=== PATIENT | female | born 1945 | race Caucasian/White ===

== ENCOUNTER 2017-12-06 06:12 | Emergency (ER) | payer OTHER ==
[2017-12-06] MEDS ORDERED: DIAZEPAM 10 MG/2 ML INJ SYRINGE ONE (07:03)
[2017-12-06] MEDS ORDERED: MECLIZINE HCL 12.5 MG TAB ONE (07:05)
[2017-12-06 07:42] LABS: Protime INR 1.09
[2017-12-06 07:43] LABS: Absolute Lymphocytes (CBC) 0.9 K/uL (0.7-4.9); Absolute Monocytes 0.4 K/uL (0.1-1.3); Absolute Neutrophil 5.8 K/uL (1.8-8.0); Basophils % 0.6 % (0-1.3); Eosinophils % 0.7 % (0-4.4); Lymphocytes % 12.5 % (15.3-44.8); MCH 28.3 pg (27.0-35.0); MCV 84.5 fL (80-100); MPV 8.3 fL (7.6-11.3); Monocytes % 5.1 % (3.3-12.3); RBC Red Blood Cell Count 5.56 M/uL (3.86-4.86)
[2017-12-06 08:00] LABS: Magnesium 2.4 mg/dL (1.8-2.4); Potassium 3.1 mmol/L (3.5-5.1)
--- NOTE | 2017-12-06 08:10 | RAD REPORT ---
EXAM DESCRIPTION: CT - Head Brain Wo Cont - 12/06/2017 6:58 am CLINICAL HISTORY: DIZZINESS Drowsiness, hypertension. COMPARISON: Head Brain Wo Cont dated 01/02/2017; HEAD BRAIN W O CONTRAST dated 03/17/2014 TECHNIQUE: All CT scans are performed using dose optimization technique as appropriate and may inclu de automated exposure control or mA/KV adjustment according to patient size. FINDINGS: No intracranial hemorrhage, hydrocephalus or extra-axial fluid collection.No areas of brai n edema or evidence of midline shift. Vertebral arteries are calcified. The paranasal sinuses and mastoids are clear. The calvarium is intact. IMPRESSION: No acute intracranial abnormality.
--- NOTE | 2017-12-06 08:11 | RAD REPORT ---
EXAM DESCRIPTION: RAD - Chest Single View - 12/06/2017 7:04 am CLINICAL HISTORY: DYSPNEA Chest pain. COMPARISON: Chest Single View dated 01/02/2017; CHEST PA AND LAT 2 VIEW dated 07/08/2014; CHEST SINGLE VIEW dated 03/17/2014; CHEST SINGLE VIEW dated 08/10/2013 FINDINGS: Portable technique limits examination quality. The lungs are grossly clear. The heart is normal in size. No displaced fractures. IMPRESSION: No acute intrathoracic process suspected.
[2017-12-06] MEDS ORDERED: POTASSIUM CL SA 10 MEQ TAB PO ONE (08:12)
--- NOTE | 2017-12-06 08:22 | ER ---
Nurse's Notes [facility] Name: Ilda Loaiza Age: 72 yrs Sex: Female : 1945 Arrival Date: 12/06/2017 Time: 06:13 Bed 18 Private MD: Diagnosis: Vertigo Presentation: 12/06 06:25 Presenting complaint: Patient states: "I am getting dizzy and having some general jd3 weakness today since about 0400. I am not sure if it is just a blood pressure issue or what.". Transition of care: patient was not received from another setting of care. 06:25 Method Of Arrival: Ambulatory jd3 06:26 Onset of symptoms was December 06, 2017. Risk Assessment: Do you want to hurt yourself or jd3 someone else? Patient reports no desire to harm self or others. Initial Sepsis Screen: Does the patient meet any 2 criteria? No. Patient's initial sepsis screen is negative. Does the patient have a suspected source of infection? No. Patient's initial sepsis screen is negative. Care prior to arrival: None. 06:26 Acuity: KILO 3 jd3 Historical: - Allergies: 06:29 No Known Allergies; jd3 - Home Meds: 06:29 amlodipine 10 mg tab 1 tab once daily [Active]; omeprazole 40 mg Oral cpDR 1 cap once jd3 daily [Active]; - PMHx: 06:29 Hypertension; High Cholesterol; lin's esophagus; jd3 - PSHx: 06:29 Hysterectomy; Cholecystectomy; jd3 - Immunization history:: Adult Immunizations up to date. - Social history:: Smoking status: Patient/guardian denies using tobacco. - Ebola Screening: : Patient negative for fever greater than or equal to 101.5 degrees Fahrenheit, and additional compatible Ebola Virus Disease symptoms. Screenin:32 Abuse screen: Denies threats or abuse. Nutritional screening: No deficits noted. jd3 Tuberculosis screening: No symptoms or risk factors identified. Fall Risk Ambulatory Aid- None/Bed Rest/Nurse Assist (0 pts). Gait- Normal/Bed Rest/Wheelchair (0 pts) Mental Status- Oriented to own ability (0 pts). Total Christina Fall Scale indicates No Risk (0-24 pts). Assessment: 06:30 General: Appears in no apparent distress. Behavior is calm, cooperative, appropriate jd3 for age. Pain: Denies pain. Neuro: Level of Consciousness is awake, alert, obeys commands, Oriented to person, place, time, situation, Appropriate for age Moves all extremities. Full function Gait is steady, Speech is normal, Facial symmetry appears normal, Pupils are PERRLA, Reports dizziness, weakness general. Cardiovascular: Heart tones S1 S2 present Capillary refill < 3 seconds Patient's skin is warm and dry. Respiratory: Airway is patent Respiratory effort is even, unlabored, Respiratory pattern is regular, symmetrical, Breath sounds are clear bilaterally. GI: Abdomen is round Bowel sounds present X 4 quads. Abd is soft and non tender X 4 quads. Reports nausea. : No signs and/or symptoms were reported regarding the genitourinary system. EENT: No signs and/or symptoms were reported regarding the EENT system. Derm: Skin is intact, Skin is dry, Skin is normal, Skin temperature is warm. Musculoskeletal: Circulation, motion, and sensation intact. Range of motion: intact in all extremities. 07:02 Reassessment: at CT;. hj 07:10 General: Appears in no apparent distress. uncomfortable, Behavior is calm, cooperative, hj appropriate for age. Pain: Denies pain. Neuro: Level of Consciousness is awake, alert, obeys commands, Oriented to person, place, time, situation, Appropriate for age Moves all extremities. Full function Gait is steady, Speech is normal, Facial symmetry appears normal, Pupils are PERRLA. Cardiovascular: Heart tones S1 S2 present Capillary refill < 3 seconds Patient's skin is warm and dry. Respiratory: Airway is patent Respiratory effort is even, unlabored, Respiratory pattern is regular, symmetrical, Breath sounds are clear. GI: No signs and/or symptoms were reported involving the gastrointestinal system. : No signs and/or symptoms were reported regarding the genitourinary system. EENT: No signs and/or symptoms were reported regarding the EENT system. Derm: Skin is intact, Skin is dry, Skin is pink, warm \\T\\ dry. normal, Skin temperature is warm. Musculoskeletal: Circulation, motion, and sensation intact. Capillary refill < 3 seconds, Range of motion: intact in all extremities. 08:04 Reassessment: Patient and/or family updated on plan of care and expected duration. Pain hj level reassessed. Patient is alert, oriented x 3, equal unlabored respirations, skin warm/dry/pink. Patient states feeling better. Patient states symptoms have improved. Vital Signs: 06:29 BP 167 / 67; Pulse 77; Resp 16 S; Temp 97.3(O); Pulse Ox 96% on R/A; Weight 70.31 kg jd3 (R); Height 5 ft. 3 in. (160.02 cm) (R); Pain 0/10; 07:00 BP 160 / 68; Pulse 75; Resp 18; Pulse Ox 100% on R/A; hj 08:04 BP 119 / 81; Pulse 75; Resp 18; Pulse Ox 100% on R/A; hj 08:07 BP 119 / 81; Pulse 76; Resp 18; Pulse Ox 100% on R/A; hj 06:29 Body Mass Index 27.46 (70.31 kg, 160.02 cm) j ED Course: 06:13 Patient arrived in ED. ds1 06:23 Thom Regan PA is PHCP. jr8 06:23 Julius Merino MD is Attending Physician. jr8 06:25 Cristobal Black, RN is Primary Nurse. jd3 06:27 Triage completed. jd3 06:30 Arm band placed on. jd3 06:32 Patient has correct armband on for positive identification. Bed in low position. Call j light in reach. Side rails up X 1. Adult w/ patient. 06:58 CT Head Brain wo Cont In Process Unspecified. EDMS 06:59 CT completed. Patient tolerated procedure well. Patient moved to CT via wheelchair. Patient moved back from CT. 06:59 Patient moved to radiology via wheelchair. 07:03 X-ray completed. Patient tolerated procedure well. Patient moved to radiology via jb2 wheelchair. Patient moved back from radiology. 07:03 Report received from LAWRENCE Jain. 07:04 XRAY Chest (1 view) In Process Unspecified. EDMS 07:10 Initial lab(s) drawn, by me, sent to lab. Inserted saline lock: 22 gauge in right hj antecubital area, using aseptic technique. Blood collected. 08:29 No provider procedures requiring assistance completed. IV discontinued, intact, hj bleeding controlled, No redness/swelling at site. Pressure dressing applied. Administered Medications: 06:51 Drug: Meclizine 25 mg Route: PO; hj 08:07 Follow up: Response: No adverse reaction hj 06:51 Drug: Valium 2 mg Route: IVP; Site: right antecubital; hj 08:07 Follow up: Response: No adverse reaction hj 08:07 Drug: Potassium Chloride 40 mEq Route: PO; hj 08:11 Follow up: Response: No adverse reaction hj Outcome: 08:21 Discharge ordered by . isma 08:29 Discharged to home ambulatory. hj 08:29 Condition: stable 08:29 Discharge instructions given to patient, Instructed on discharge instructions, follow up and referral plans. medication usage, Demonstrated understanding of instructions, follow-up care, medications, Prescriptions given X 2. 08:29 Patient left the ED. Signatures: Dispatcher [employer] EDMS Dmitry Grace Ervin eh Sanford, Demi ds1 Thom Regan PA PA jr8 Juan Antonio Palafox RN RN Cristobal Cason RN RN jd3 Corrections: (The following items were deleted from the chart) 06:27 06:25 Presenting complaint: Patient states: "I am getting dizzy and having some general jd3 weakness today since about 0400." jd3
--- NOTE | 2017-12-06 08:22 | EDPHYS ---
Physician Documentation [facility] Name: Ilda Loaiza Age: 72 yrs Sex: Female : 1945 Arrival Date: 12/06/2017 Time: 06:13 Bed 18 Private MD: ED Physician Julius Merino HPI: 12/06 07:19 This 72 yrs old Female presents to ER via Ambulatory with complaints of jr8 Dizziness, Weakness. 07:19 The patient presents with sense of spinning, vertigo. Onset: The symptoms/episode jr8 began/occurred acutely, this morning, today. Context: occurred at home, occurred while the patient was at rest, just prior to the episode the patient experienced no apparent symptoms. Modifying factors: The symptoms are alleviated by holding head still, the symptoms are aggravated by movement of head, standing up, changing position. Associated signs and symptoms: Pertinent positives: nausea. Severity of symptoms: At their worst the symptoms were moderate in the emergency department the symptoms have resolved. Patient's baseline: Neuro: alert and fully oriented, Motor: no deficits, Ambulation: walks without assistance, Speech: normal. The patient has experienced similar episodes in the past, a few times. The patient has not recently seen a physician. Historical: - Allergies: 06:29 No Known Allergies; jd3 - Home Meds: 06:29 amlodipine 10 mg tab 1 tab once daily [Active]; omeprazole 40 mg Oral cpDR 1 cap once jd3 daily [Active]; - PMHx: 06:29 Hypertension; High Cholesterol; lin's esophagus; jd3 - PSHx: 06:29 Hysterectomy; Cholecystectomy; jd3 - Immunization history:: Adult Immunizations up to date. - Social history:: Smoking status: Patient/guardian denies using tobacco. - Ebola Screening: : Patient negative for fever greater than or equal to 101.5 degrees Fahrenheit, and additional compatible Ebola Virus Disease symptoms. ROS: 07:19 Eyes: Negative for injury, pain, redness, and discharge, ENT: Negative for injury, jr8 pain, and discharge, Neck: Negative for injury, pain, and swelling, Cardiovascular: Negative for chest pain, palpitations, and edema, Respiratory: Negative for shortness of breath, cough, wheezing, and pleuritic chest pain, Back: Negative for injury and pain, MS/Extremity: Negative for injury and deformity, Skin: Negative for injury, rash, and discoloration. 07:19 Abdomen/GI: Positive for nausea, Negative for abdominal pain, vomiting, diarrhea, abdominal cramps, abdominal distension, anorexia, dysphagia, hematemesis, black/tarry stool, rectal pain, rectal bleeding, bowel incontinence, flatulence. 07:19 Neuro: Positive for dizziness, Negative for altered mental status, gait disturbance, headache, hearing loss, loss of consciousness, numbness, seizure activity, speech changes, syncope, near syncope, tingling, tinnitus, tremor, visual changes, weakness. Exam: 07:19 Eyes: Pupils equal round and reactive to light, extra-ocular motions intact. Lids and jr8 lashes normal. Conjunctiva and sclera are non-icteric and not injected. Cornea within normal limits. Periorbital areas with no swelling, redness, or edema. ENT: Nares patent. No nasal discharge, no septal abnormalities noted. Tympanic membranes are normal and external auditory canals are clear. Oropharynx with no redness, swelling, or masses, exudates, or evidence of obstruction, uvula midline. Mucous membranes moist. Neck: Trachea midline, no thyromegaly or masses palpated, and no cervical lymphadenopathy. Supple, full range of motion without nuchal rigidity, or vertebral point tenderness. No Meningismus. Cardiovascular: Regular rate and rhythm with a normal S1 and S2. No gallops, murmurs, or rubs. Normal PMI, no JVD. No pulse deficits. Respiratory: Lungs have equal breath sounds bilaterally, clear to auscultation and percussion. No rales, rhonchi or wheezes noted. No increased work of breathing, no retractions or nasal flaring. Abdomen/GI: Soft, non-tender, with normal bowel sounds. No distension or tympany. No guarding or rebound. No evidence of tenderness throughout. Back: No spinal tenderness. No costovertebral tenderness. Full range of motion. Skin: Warm, dry with normal turgor. Normal color with no rashes, no lesions, and no evidence of cellulitis. MS/ Extremity: Pulses equal, no cyanosis. Neurovascular intact. Full, normal range of motion. Neuro: Awake and alert, GCS 15, oriented to person, place, time, and situation. Cranial nerves II-XII grossly intact. Motor strength 5/5 in all extremities. Sensory grossly intact. Cerebellar exam normal. Normal gait. Vital Signs: 06:29 BP 167 / 67; Pulse 77; Resp 16 S; Temp 97.3(O); Pulse Ox 96% on R/A; Weight 70.31 kg jd3 (R); Height 5 ft. 3 in. (160.02 cm) (R); Pain 0/10; 07:00 BP 160 / 68; Pulse 75; Resp 18; Pulse Ox 100% on R/A; hj 08:04 BP 119 / 81; Pulse 75; Resp 18; Pulse Ox 100% on R/A; hj 08:07 BP 119 / 81; Pulse 76; Resp 18; Pulse Ox 100% on R/A; hj 06:29 Body Mass Index 27.46 (70.31 kg, 160.02 cm) jd3 MDM: 06:23 Patient medically screened. [facility] 08:20 Differential diagnosis: cardiac arrhythmia, CVA, generalized weakness, hypovolemia, jr8 idiopathic dizziness, near-syncope, sepsis, syncope, TIA, vertigo. Data reviewed: vital signs, nurses notes, lab test result(s), EKG, radiologic studies, CT scan, and as a result, I will discharge patient. Data interpreted: Pulse oximetry: on room air is 100 %. Interpretation: normal. Counseling: I had a detailed discussion with the patient and/or guardian regarding: the historical points, exam findings, and any diagnostic results supporting the discharge/admit diagnosis, lab results, radiology results, the need for outpatient follow up, a family practitioner, a neurologist, to return to the emergency department if symptoms worsen or persist or if there are any questions or concerns that arise at home. 12/06 06:42 Order name: Basic Metabolic Panel 12/06 06:42 Order name: CBC with Diff; Complete Time: 07:52 12/06 06:42 Order name: Magnesium; Complete Time: 08:06 12/06 06:42 Order name: NT PRO-BNP; Complete Time: 08:06 12/06 06:42 Order name: PT-INR; Complete Time: 07:52 12/06 06:43 Order name: Basic Metabolic Panel; Complete Time: 08:06 EDMS 12/06 06:42 Order name: XRAY Chest (1 view); Complete Time: 08:12 12/06 06:42 Order name: EKG; Complete Time: 06:43 12/06 06:42 Order name: Cardiac monitoring; Complete Time: 06:51 12/06 06:42 Order name: EKG - Nurse/Tech; Complete Time: 06:51 12/06 06:42 Order name: CT Head Brain wo Cont; Complete Time: 08:12 12/06 06:42 Order name: IV Saline Lock; Complete Time: 07:18 12/06 06:42 Order name: Labs collected and sent; Complete Time: :18 12/06 06:42 Order name: O2 Per Protocol; Complete Time: 06:51 12/06 06:42 Order name: O2 Sat Monitoring; Complete Time: : Administered Medications: 06:51 Drug: Meclizine 25 mg Route: PO; hj 08:07 Follow up: Response: No adverse reaction hj 06:51 Drug: Valium 2 mg Route: IVP; Site: right antecubital; hj 08:07 Follow up: Response: No adverse reaction hj 08:07 Drug: Potassium Chloride 40 mEq Route: PO; hj 08:11 Follow up: Response: No adverse reaction Disposition: 12/07 07:01 Co-signature as Attending Physician, Julius Merino MD I agree with the assessment and orwan plan of care. Disposition: 12/06/17 08:21 Discharged to Home. Impression: Vertigo. - Condition is Stable. - Discharge Instructions: Benign Positional Vertigo, Vertigo. - Prescriptions for Meclizine 25 mg Oral Tablet - take 1 tablet by ORAL route every 8 hours As needed; 30 tablet. Zofran 4 mg Oral Tablet - take 1 tablet by ORAL route every 12 hours As needed; 20 tablet. - Medication Reconciliation Form, Thank You Letter, Antibiotic Education, Prescription Opioid Use form. - Follow up: Private Physician; When: 2 - 3 days; Reason: Recheck today's complaints, Continuance of care, Re-evaluation by your physician. - Problem is new. - Symptoms have improved. Signatures: Dispatcher [employer] Julius Puckett MD MD cha Roszak, Josh, PA PA jr8 Juan Antonio Palafox RN RN hj Davies, Jonathon, RN RN jd3 Corrections: (The following items were deleted from the chart) 07/26 08:29 08:21 12/06/2017 08:21 Discharged to Home. Impression: Vertigo. Condition is Stable. hj Forms are Medication Reconciliation Form, Thank You Letter, Antibiotic Education, Prescription Opioid Use. Follow up: Private Physician; When: 2 - 3 days; Reason: Recheck today's complaints, Continuance of care, Re-evaluation by your physician. Problem is new. Symptoms have improved. jr8
[2017-12-06 08:35] VITALS: TEMP 97.3
[2017-12-06 08:36] VITALS: O2SAT 100
[2017-12-06 08:37] VITALS: BP 119/81
--- NOTE | 2017-12-06 12:11 | EKG ---
Test Date: 2017-12-06 Test Time: 06:47:10 Animal Assistant: ALISSON MEASUREMENT RESULTS: Intervals: Rate: 69 [place]: 186 QRSD: 150 QT: 446 QTc: 477 [place]: P: 61 [place]: 186 QRS: -48 T: -12 INTERPRETIVE STATEMENTS: Normal sinus rhythm Right bundle branch block Left anterior fascicular block Bifascicular block Abnormal ECG Compared to ECG 01/02/2017 22:32:56 No significant changes Electronically Signed On 12-06-17 12:10:09 CDT by Quan Medley
== END 2017-12-06 08:29 | disposition home or self-care (01) ==
LOC: ER 06:12
DX: R42 Dizziness and giddiness (principal); R53.1 Weakness
CPT/HCPCS: 36415; 70450; 71045; 80048; 83735; 83880; 85025; 85610; 93005; 96374; 99284; J3360

== ENCOUNTER 2018-05-29 19:05 | Emergency (ER) | payer OTHER ==
--- NOTE | 2018-05-29 19:52 | RAD REPORT ---
EXAM DESCRIPTION: CT - Head Brain Wo Cont - 05/29/2018 7:46 pm CLINICAL HISTORY: DIZZINESS Headache, drowsiness COMPARISON: Head Brain Wo Cont dated 12/06/2017; Head Brain Wo Cont dated 01/02/2017 TECHNIQUE: All CT scans are performed using dose optimization technique as appropriate and may inclu de automated exposure control or mA/KV adjustment according to patient size. FINDINGS: No intracranial hemorrhage, hydrocephalus or extra-axial fluid collection.No areas of brai n edema or evidence of midline shift. The paranasal sinuses and mastoids are clear. The calvarium is intact. Vertebral arteries are atheros clerotic IMPRESSION: No acute intracranial abnormality.
[2018-05-29] MEDS ORDERED: NA CHLORIDE 0.9% 1,000 ML ONE (20:03)
[2018-05-29 20:07] LABS: Absolute Lymphocytes (CBC) 1.3 K/uL (0.7-4.9); Absolute Monocytes 0.7 K/uL (0.1-1.3); Absolute Neutrophil 7.8 K/uL (1.8-8.0); Basophils % 0.6 % (0-1.3); Eosinophils % 1.6 % (0-4.4); Hematocrit 41.5 % (36.0-45.0); Lymphocytes % 13.1 % (15.3-44.8); MPV 7.7 fL (7.6-11.3); Monocytes % 7.2 % (3.3-12.3); RBC Red Blood Cell Count 4.94 M/uL (3.86-4.86)
[2018-05-29 20:11] LABS: Protime INR 1.12
--- NOTE | 2018-05-29 20:13 | RAD REPORT ---
EXAM DESCRIPTION: RAD - Chest Single View - 05/29/2018 7:56 pm CLINICAL HISTORY: COUGH Chest pain. COMPARISON: Chest Single View dated 12/06/2017; Chest Single View dated 01/02/2017; CHEST PA AND LAT 2 VIEW dated 07/08/2014; CHEST SINGLE VIEW dated 03/17/2014 FINDINGS: Portable technique limits examination quality. The lungs are grossly clear. The heart is normal in size. No displaced fractures. IMPRESSION: No acute intrathoracic process suspected.
[2018-05-29 20:33] LABS: ALT/SGPT 23 U/L (12-78); AST/SGOT 18 U/L (15-37); Albumin 3.3 g/dL (3.4-5.0); Alkaline Phosphatase 102 U/L (45-117); BUN Blood Urea Nitrogen 16 mg/dL (7-18); Bicarbonate 26 mmol/L (21-32); Bilirubin Direct < 0.1 mg/dL (0-0.2); Bilirubin Total 0.3 mg/dL (0.2-1.0); Glucose Level 111 mg/dL (74-106); Lipase 262 U/L (73-393); Magnesium 2.4 mg/dL (1.8-2.4); NT PRO-BNP 118 pg/mL (<125); Potassium 3.8 mmol/L (3.5-5.1); Sodium Level 144 mmol/L (136-145); Troponin (Emerg Dept Use Only) < 0.02 ng/mL (0.0-0.045)
--- NOTE | 2018-05-29 21:17 | RAD REPORT ---
EXAM DESCRIPTION: US - CP - 05/29/2018 9:06 pm CLINICAL HISTORY: DIZZINESS TIA, syncope COMPARISON: Carotid Artery Bilateral dated 01/03/2017 TECHNIQUE: Real-time sonographic evaluation of both carotid systems was performed. Doppler interroga tion was performed with waveform tracing bilaterally. FINDINGS: Normal high resistance waveforms are noted in both external carotid arteries. The common c arotid arteries and internal carotid arteries show normal low resistance waveforms. No significant plaque formation is seen. Peak systolic and end diastolic velocity values and the ICA/ CCA ratios are in the non-hemodynamically significant range. Antegrade flow seen in both vertebral arteries. IMPRESSION: No significant atherosclerotic changes noted. No evidence of a hemodynamically significant stenosis.
--- NOTE | 2018-05-29 21:40 | EDPHYS ---
Physician Documentation [facility] Name: Ilda Loaiza Age: 73 yrs Sex: Female : 1945 Arrival Date: 05/29/2018 Time: 19:10 Bed 8 Private MD: Basil Dunn ED Physician Julius Merino HPI: 05/29 21:34 This 73 yrs old Female presents to ER via Ambulatory with complaints of rowan Dizziness. 21:34 The patient presents with dizziness. Onset: The symptoms/episode began/occurred 2 rowan day(s) ago. Context: occurred at an unknown location. Modifying factors: The symptoms are alleviated by closing eyes, holding head still, the symptoms are aggravated by movement of head. Associated signs and symptoms: The patient has no apparent associated signs or symptoms. Severity of symptoms: At their worst the symptoms were moderate in the emergency department the symptoms are unchanged. Patient's baseline: Neuro:. The patient has not experienced similar symptoms in the past. Historical: - Allergies: 19:22 unknown pain med; aa1 - Home Meds: 19:22 amlodipine 10 mg tab 1 tab once daily [Active]; omeprazole 40 mg Oral cpDR 1 cap once aa1 daily [Active]; - PMHx: 19:22 Gallardo's Esophagus; High Cholesterol; Hypertension; aa1 - PSHx: 19:22 Hysterectomy; Cholecystectomy; aa1 - Immunization history:: Flu vaccine is not up to date. - Social history:: Smoking status: Patient/guardian denies using tobacco. - Ebola Screening: : No symptoms or risks identified at this time. - Family history:: not pertinent. ROS: 21:34 Constitutional: Negative for fever, chills, and weight loss, Eyes: Negative for injury, rowan pain, redness, and discharge, ENT: Negative for injury, pain, and discharge, Neck: Negative for injury, pain, and swelling, Cardiovascular: Negative for chest pain, palpitations, and edema, Respiratory: Negative for shortness of breath, cough, wheezing, and pleuritic chest pain, Abdomen/GI: Negative for abdominal pain, nausea, vomiting, diarrhea, and constipation, Back: Negative for injury and pain, : Negative for injury, bleeding, discharge, and swelling, MS/Extremity: Negative for injury and deformity, Skin: Negative for injury, rash, and discoloration, Psych: Negative for depression, anxiety, suicide ideation, homicidal ideation, and hallucinations, Allergy/Immunology: Negative for hives, rash, and allergies, Endocrine: Negative for neck swelling, polydipsia, polyuria, polyphagia, and marked weight changes, Hematologic/Lymphatic: Negative for swollen nodes, abnormal bleeding, and unusual bruising. 21:34 Neuro: Positive for dizziness. Exam: 21:34 Constitutional: This is a well developed, well nourished patient who is awake, alert, rowan and in no acute distress. Head/Face: Normocephalic, atraumatic. Eyes: Pupils equal round and reactive to light, extra-ocular motions intact. Lids and lashes normal. Conjunctiva and sclera are non-icteric and not injected. Cornea within normal limits. Periorbital areas with no swelling, redness, or edema. ENT: Nares patent. No nasal discharge, no septal abnormalities noted. Tympanic membranes are normal and external auditory canals are clear. Oropharynx with no redness, swelling, or masses, exudates, or evidence of obstruction, uvula midline. Mucous membranes moist. Neck: Trachea midline, no thyromegaly or masses palpated, and no cervical lymphadenopathy. Supple, full range of motion without nuchal rigidity, or vertebral point tenderness. No Meningismus. Chest/axilla: Normal chest wall appearance and motion. Nontender with no deformity. No lesions are appreciated. Cardiovascular: Regular rate and rhythm with a normal S1 and S2. No gallops, murmurs, or rubs. Normal PMI, no JVD. No pulse deficits. Respiratory: Lungs have equal breath sounds bilaterally, clear to auscultation and percussion. No rales, rhonchi or wheezes noted. No increased work of breathing, no retractions or nasal flaring. Abdomen/GI: Soft, non-tender, with normal bowel sounds. No distension or tympany. No guarding or rebound. No evidence of tenderness throughout. Back: No spinal tenderness. No costovertebral tenderness. Full range of motion. Skin: Warm, dry with normal turgor. Normal color with no rashes, no lesions, and no evidence of cellulitis. MS/ Extremity: Pulses equal, no cyanosis. Neurovascular intact. Full, normal range of motion. Neuro: Awake and alert, GCS 15, oriented to person, place, time, and situation. Cranial nerves II-XII grossly intact. Motor strength 5/5 in all extremities. Sensory grossly intact. Cerebellar exam normal. Normal gait. Psych: Awake, alert, with orientation to person, place and time. Behavior, mood, and affect are within normal limits. 21:34 Neck: External neck: is normal, no acute changes, C-spine: appears grossly normal, no acute changes, Thyroid: appears normal, no acute changes, Trachea: no acute changes, ROM/movement: is normal, no acute changes, Meningeal signs: are not present, Kernig's sign is negative, Brudzinski's sign is negative. Vital Signs: 19:22 BP 191 / 89; Pulse 92; Resp 18; Temp 98.2; Pulse Ox 96% on R/A; Weight 70.76 kg; Height aa1 5 ft. 3 in. (160.02 cm); Pain 0/10; 21:57 BP 183 / 75; Pulse 98; Resp 18; Pulse Ox 97% on R/A; ea 22:31 BP 150 / 73; Pulse 80; Resp 20; Pulse Ox 94% on R/A; ea 22:37 BP 138 / 69; Pulse 82; Resp 19; Pulse Ox 99% ; ea 19:22 Body Mass Index 27.63 (70.76 kg, 160.02 cm) aa1 MDM: 19:35 Patient medically screened. [facility] 21:36 Data reviewed: vital signs, nurses notes, lab test result(s), EKG, radiologic studies, [facility] CT scan, plain films. 05/29 19:37 Order name: Basic Metabolic Panel [facility] 05/29 19:37 Order name: CBC with Diff; Complete Time: 20:29 [facility] 05/29 19:37 Order name: LFT's [facility] 05/29 19:37 Order name: Magnesium; Complete Time: 21:27 [facility] 05/29 19:37 Order name: NT PRO-BNP; Complete Time: 21:27 [facility] 05/29 19:37 Order name: PT-INR; Complete Time: 20:29 [facility] 05/29 19:37 Order name: Troponin (emerg Dept Use Only); Complete Time: 21:27 [facility] 05/29 19:37 Order name: XRAY Chest (1 view); Complete Time: 20:29 [facility] 05/29 19:37 Order name: Lipase; Complete Time: 21:27 [facility] 05/29 19:37 Order name: Urine Culture [facility] 05/29 19:37 Order name: CT Head Brain wo Cont; Complete Time: 20:29 [facility] 05/29 19:38 Order name: Basic Metabolic Panel; Complete Time: 21:27 [facility] 05/29 19:38 Order name: Liver (Hepatic) Function; Complete Time: 21:27 [facility] 05/29 21:43 Order name: Urine Dipstick--Ancillary (enter results); Complete Time: 22:21 [facility] 05/29 19:37 Order name: EKG; Complete Time: 19:38 [facility] 05/29 19:37 Order name: Cardiac monitoring; Complete Time: 20:50 [facility] 05/29 19:37 Order name: EKG - Nurse/Tech; Complete Time: 20:48 [facility] 05/29 19:37 Order name: IV Saline Lock; Complete Time: 20:48 [facility] 05/29 19:37 Order name: Labs collected and sent; Complete Time: 20:48 [facility] 05/29 19:37 Order name: O2 Per Protocol; Complete Time: 20:48 [facility] 05/29 19:37 Order name: O2 Sat Monitoring; Complete Time: 20:48 [facility] 05/29 19:37 Order name: Urine Dipstick-Ancillary (obtain specimen); Complete Time: 22:23 [facility] 05/29 20:29 Order name: US Carotid Artery Bilateral; Complete Time: 21:27 [facility] Administered Medications: 20:10 Drug: NS 0.9% 1000 ml Route: IV; Rate: 125 ml/hr; Site: right antecubital; ea 22:55 Follow up: Response: No adverse reaction; IV Status: Completed infusion ea 22:11 Drug: Meclizine 50 mg Route: PO; ea 22:38 Follow up: Response: No adverse reaction ea 22:11 Drug: Zofran 4 mg Route: IVP; Site: right antecubital; ea 22:38 Follow up: Response: No adverse reaction; Marked relief of symptoms ea 22:11 Drug: Lisinopril 10 mg Route: PO; ea 22:38 Follow up: Response: No adverse reaction; Blood pressure is lowered ea Disposition: 05/29/18 21:39 Discharged to Home. Impression: Dizziness and giddiness, Essential (primary) hypertension. - Condition is Stable. - Discharge Instructions: Benign Positional Vertigo, Dizziness, Hypertension, Hypertension, [id number], How to Take Your Blood Pressure, Prnz-ki-Eils, Vertigo, Cmqs-mv-Gwjc, Aspirin and Your Heart, Dizziness, Ehxd-wa-Etht, Managing Your Hypertension. - Prescriptions for Meclizine 25 mg Oral Tablet - take 1 tablet by ORAL route every 8 hours As needed; 30 tablet. Zofran 4 mg Oral Tablet - take 1 tablet by ORAL route every 12 hours As needed; 20 tablet. Lisinopril 5 mg Oral Tablet - take 1 tablet by ORAL route once daily; 20 tablet. - Medication Reconciliation Form, Thank You Letter, Antibiotic Education, Prescription Opioid Use form. - Follow up: Basil Dunn DO; When: 2 - 3 days; Reason: Recheck today's complaints, Continuance of care, Re-evaluation by your physician. - Problem is new. - Symptoms have improved. Signatures: Dispatcher [employer] EDMS Tami Woo RN RN aa1 Julius Merino MD MD cha Antunez, Elena, RN RN ea Corrections: (The following items were deleted from the chart) 23:37 21:39 05/29/2018 21:39 Discharged to Home. Impression: Dizziness and giddiness; ea Essential (primary) hypertension. Condition is Stable. Forms are Medication Reconciliation Form, Thank You Letter, Antibiotic Education, Prescription Opioid Use. Follow up: Basil Dunn; When: 2 - 3 days; Reason: Recheck today's complaints, Continuance of care, Re-evaluation by your physician. Problem is new. Symptoms have improved. rowan
--- NOTE | 2018-05-29 21:40 | ER ---
Nurse's Notes [facility] Name: Ilda Loaiza Age: 73 yrs Sex: Female : 1945 Arrival Date: 05/29/2018 Time: 19:10 Bed 8 Private MD: Basil Dunn Diagnosis: Dizziness and giddiness;Essential (primary) hypertension Presentation: 05/29 19:19 Presenting complaint: Patient states: dizziness since 1730 this evening. Reports she aa1 was also recently diagnosed with bronchitis and started on albuterol \T\ Augmentin and does not know if due to the medication. Denies pain, SOB, or N/V. Transition of care: patient was not received from another setting of care. Onset of symptoms was May 29, 2018 at 17:30. Risk Assessment: Do you want to hurt yourself or someone else? Patient reports no desire to harm self or others. Initial Sepsis Screen: Does the patient meet any 2 criteria? No. Patient's initial sepsis screen is negative. Does the patient have a suspected source of infection? No. Patient's initial sepsis screen is negative. Care prior to arrival: None. 19:19 Method Of Arrival: Ambulatory aa1 19:19 Acuity: KILO 3 aa1 Triage Assessment: 19:22 General: Appears in no apparent distress. comfortable, Behavior is calm, cooperative, aa1 appropriate for age. Pain: Denies pain. Historical: - Allergies: 19:22 unknown pain med; aa1 - Home Meds: 19:22 amlodipine 10 mg tab 1 tab once daily [Active]; omeprazole 40 mg Oral cpDR 1 cap once aa1 daily [Active]; - PMHx: 19:22 Gallardo's Esophagus; High Cholesterol; Hypertension; aa1 - PSHx: 19:22 Hysterectomy; Cholecystectomy; aa1 - Immunization history:: Flu vaccine is not up to date. - Social history:: Smoking status: Patient/guardian denies using tobacco. - Ebola Screening: : No symptoms or risks identified at this time. - Family history:: not pertinent. Screenin:30 Abuse screen: Denies threats or abuse. Nutritional screening: No deficits noted. ea Tuberculosis screening: No symptoms or risk factors identified. Fall Risk IV access (20 points). Assessment: 20:30 General: Appears in no apparent distress. Behavior is calm, cooperative, appropriate ea for age. Pain: Denies pain. Neuro: Level of Consciousness is awake, alert, obeys commands, Oriented to person, place, time, situation, Reports dizziness. Cardiovascular: Heart tones S1 S2 present Patient's skin is warm and dry. Respiratory: Airway is patent Respiratory effort is even, unlabored, Respiratory pattern is regular, symmetrical. Derm: Skin is pink, warm \T\ dry. Musculoskeletal: Circulation, motion, and sensation intact. 21:57 Reassessment: Patient and/or family updated on plan of care and expected duration. Pain ea level reassessed. Patient is alert, oriented x 3, equal unlabored respirations, skin warm/dry/pink. 22:54 Reassessment: Patient and/or family updated on plan of care and expected duration. Pain ea level reassessed. Patient is alert, oriented x 3, equal unlabored respirations, skin warm/dry/pink. Discharge instructions given to patient, verbalized the understanding of instruction. Patient states feeling better. Vital Signs: 19:22 BP 191 / 89; Pulse 92; Resp 18; Temp 98.2; Pulse Ox 96% on R/A; Weight 70.76 kg; Height aa1 5 ft. 3 in. (160.02 cm); Pain 0/10; 21:57 BP 183 / 75; Pulse 98; Resp 18; Pulse Ox 97% on R/A; ea 22:31 BP 150 / 73; Pulse 80; Resp 20; Pulse Ox 94% on R/A; ea 22:37 BP 138 / 69; Pulse 82; Resp 19; Pulse Ox 99% ; ea 19:22 Body Mass Index 27.63 (70.76 kg, 160.02 cm) aa1 ED Course: 19:10 Patient arrived in ED. es 19:10 Basil Dunn DO is Private Physician. es 19:21 Triage completed. aa1 19:22 Arm band placed on left wrist. Patient placed in an exam room, on a stretcher. aa1 19:35 Julius Merino MD is Attending Physician. rowan 19:[address] vm2 19:47 CT completed. Patient tolerated procedure well. Patient moved to radiology. vm2 19:47 CT Head Brain wo Cont In Process Unspecified. EDMS 19:56 XRAY Chest (1 view) In Process Unspecified. EDMS 20:27 Alvarez, Ani, RN is Primary Nurse. ea 20:30 Patient has correct armband on for positive identification. Placed in gown. Bed in low ea position. Call light in reach. Side rails up X 1. 21:06 US Carotid Artery Bilateral In Process Unspecified. EDMS 21:38 Basil Dunn DO is Referral Physician. rowan 22:35 No provider procedures requiring assistance completed. ea 22:54 IV discontinued, intact, bleeding controlled, No redness/swelling at site. Pressure ea dressing applied. Administered Medications: 20:10 Drug: NS 0.9% 1000 ml Route: IV; Rate: 125 ml/hr; Site: right antecubital; ea 22:55 Follow up: Response: No adverse reaction; IV Status: Completed infusion ea 22:11 Drug: Meclizine 50 mg Route: PO; ea 22:38 Follow up: Response: No adverse reaction ea 22:11 Drug: Zofran 4 mg Route: IVP; Site: right antecubital; ea 22:38 Follow up: Response: No adverse reaction; Marked relief of symptoms ea 22:11 Drug: Lisinopril 10 mg Route: PO; ea 22:38 Follow up: Response: No adverse reaction; Blood pressure is lowered ea Outcome: 21:39 Discharge ordered by . rowan 22:55 Discharge instructions given to patient, Instructed on discharge instructions, follow ea up and referral plans. medication usage, Demonstrated understanding of instructions, follow-up care, medications, Prescriptions given X 3. 23:36 Discharged to home ambulatory, with family. ea 23:36 Condition: improved 23:37 Patient left the ED. ea Signatures: Dispatcher [employer] EDTami Liu, LAWRENCE RN aa1 Julius Merino MD MD cha Salyer, Edna es McGuire, Victoria [facility] Ani Alvarez RN RN ea
[2018-05-29 21:47] LABS: Urine Blood NEGATIVE (NEG); Urine Glucose NEGATIVE (NEG); Urine Protein NEGATIVE (NEG)
[2018-05-29] MEDS ORDERED: MECLIZINE HCL 12.5 MG TAB ONE (22:13)
[2018-05-29] MEDS ORDERED: ONDANSETRON 4 MG/2 ML VIAL ONE (22:14)
[2018-05-29] MEDS ORDERED: LISINOPRIL 10 MG TAB ONE (22:14)
[2018-05-30 06:52] VITALS: BP 138/69; TEMP 98.2; O2SAT 99
--- NOTE | 2018-05-30 08:16 | EKG ---
Test Date: 2018-05-29 Test Time: 19:37:52 Video Recorder Mechanic: COREYT MEASUREMENT RESULTS: Intervals: Rate: 94 DE: 162 QRSD: 134 QT: 396 QTc: 495 [place]: P: 50 DE: 162 QRS: -45 T: 6 INTERPRETIVE STATEMENTS: Normal sinus rhythm Left axis deviation Right bundle branch block Abnormal ECG Compared to ECG 12/06/2017 06:47:10 Left-axis deviation now present Left anterior fascicular block no longer present Bifascicular block no longer present Electronically Signed On 05-30-18 08:09:09 INFORMATION SECURITY by Quan Medley
== END 2018-05-29 23:37 | disposition home or self-care (01) ==
LOC: ER 19:05
DX: I10 Essential (primary) hypertension (principal); R42 Dizziness and giddiness; E78.00 Pure hypercholesterolemia, unspecified; Z79.899 Other long term (current) drug therapy
CPT/HCPCS: 36415; 70450; 71045; 80048; 80076; 81003; 83690; 83735; 83880; 84484; 85025; 85610; 87088; 93005; 93880; 96361; 96374; 99284; J2405; J7030; 87086

== ENCOUNTER 2020-10-01 02:46 | Emergency (ER) | payer OTHER ==
--- OUTSIDE RECORDS SUMMARY | 2020-10-01 02:48 | XMS REPORT | Continuity of Care Document ---
:1945 Author Organization [facility] t Address [address] [place] [address] Care Team Providers Name Role Phone Unavailable Unavailable Unavailable Problems This patient has no known problems. Allergies, Adverse Reactions, Alerts This patient has no known allergies or adverse reactions. Medications Ordered Filled Start Stop Current Ordering Indication Dosage Frequency Signature Comments Components Source Medication Medication Date Date Medication? Clinician (SIG) Name Name Losartan Losartan Yes Carla [address] [facility] Potassium Potassium 6-02 [facility] Omeprazole Omeprazole Yes Carla [address] [facility] Potassium [facility]assium Yes Carla [address] [facility] Magnesium Magnesium Yes Carla [address] [facility] with a [facility] Multivitami Multivitami Yes Carla as [facility] n Adults n Adults [facility] directed [facility] 50+ 50+ [facility] Aspirin Aspirin Yes Carla [address] [facility] Amlodipine Amlodipine Yes Carla [address] [facility] Besylate Besylate [facility] Lisinopril Lisinopril Yes Carla [address] [facility] Procedures This patient has no known procedures. Encounters Start End Encounter Admission Attending Care Care Encounter Source Date/Time Date/Time Type Type Clinicians Facility Department ID 2020-09-02 2020-09-02 [facility] [id number] 2020-08-30 2020[facility]08-30 [facility] [id number] [facility] 2020-07-08 2020-07-08 [facility] [id number] [facility] 2020-05-10 2020-05-10 [facility] [id number] [facility] 2020-04-05 2020-04-05 [facility] [id number] [facility] 2019-12-25 2019-12-25 [facility] [id number] [facility] 10[facility]02[facility]00 10[facility]00 [facility] 2019-12-23 2019-12-23 [facility] [id number] [facility] 08:40[facility]00 08:40:00 [facility] 2019-12-10 2019-12-10 [facility] [id number] [facility] 08:20[facility]00 08:20:00 [facility] 2019-10-14 2019-10-14 [facility] [id number] [facility] 09:20[facility]00 09:20:00 [facility] Out[facility] 2019-09-11 2019-09-11 [facility] [id number] [facility] 08:56:00 08:56:00 [facility] l Medicine Outpati ent Clinics 2019-09-10 2019-09-10 [facility] [id number] [facility] 08:15:00 08:15:00 [facility] l Medicine Outpati ent Clinics 2019-06-11 2019-06-11 [facility] [id number] [facility] 21:53[facility]00 21:53:00 [facility] 2019-06-11 2019-06-11 Outpatient Nahed Judd [id number] [facility] 10:30:00 10:30:00 [facility] ent Clinics Results This patient has no known results.
[2020-10-01] MEDS ORDERED: NA CHLORIDE 0.9% 1,000 ML ONE ×2 (03:59→05:22)
[2020-10-01] MEDS ORDERED: ONDANSETRON 4 MG/2 ML VIAL ONE (03:59)
[2020-10-01 04:00] LABS: Absolute Lymphocytes (CBC) 1.7 K/uL (0.7-4.9); Basophils % 0.6 % (0-1.3); Hematocrit 44.4 % (36.0-45.0); Lymphocytes % 24.1 % (15.3-44.8)
[2020-10-01 04:05] LABS: Protime INR 1.02
[2020-10-01 04:40] LABS: Urine Blood Negative (Negative); Urine Glucose Negative (Negative); Urine Protein 2+ (Negative)
[2020-10-01 04:48] LABS: ALT/SGPT 26 U/L (12-78); AST/SGOT 16 U/L (15-37); Albumin 3.8 g/dL (3.4-5.0); Alkaline Phosphatase 99 U/L (45-117); BUN Blood Urea Nitrogen 23 mg/dL (7-18); Bicarbonate 26 mmol/L (21-32); Bilirubin Direct < 0.1 mg/dL (0-0.2); Bilirubin Total 0.2 mg/dL (0.2-1.0); Glucose Level 134 mg/dL (74-106); Lipase 327 U/L (73-393); Magnesium 2.1 mg/dL (1.8-2.4); NT PRO-BNP 45 pg/mL (<125); Potassium 3.2 mmol/L (3.5-5.1); Protein, Total 8.5 g/dL (6.4-8.2); Sodium Level 140 mmol/L (136-145); Troponin (Emerg Dept Use Only) < 0.02 ng/mL (0.0-0.045)
[2020-10-01] MEDS ORDERED: CIPROFLOXACIN 400mg IV 400 MG/200 ML BAG IV ONE (05:23)
[2020-10-01] MEDS ORDERED: KCL 20 MEQ/100 mL IVPB 20 MEQ/100 ML BAG IV ONE (05:23)
--- NOTE | 2020-10-01 06:36 | ER ---
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 Coronavirus screen: Client presents with at least one sign or symptom that may indicate coronavirus-19. Ebola Screen: Patient negative for fever greater than or equal to 101.5 degrees Fahrenheit, and additional compatible Ebola Virus Disease symptoms Patient denies exposure to infectious person. Patient denies travel to an Ebola-affected area in the 21 days before illness onset. No symptoms or risks identified at this time. Initial Sepsis Screen: Does the patient meet any 2 criteria? No. Patient's initial sepsis screen is negative. Does the patient have a suspected source of infection? No. Patient's initial sepsis screen is negative. Risk Assessment: Do you want to hurt yourself or someone else? Patient reports no desire to harm self or others. Onset of symptoms was October 01, 2020. 03:01 Method Of Arrival: Wheelchair iw 03:01 Acuity: KILO 3 iw Triage Assessment: 03:25 General: Appears in no apparent distress. Behavior is calm, cooperative. Pain: Denies ak2 pain. 03:25 Cardiovascular: No deficits noted. ak2 Historical: - Allergies: 03:05 NKA; iw - Home Meds: 03:05 amlodipine 10 mg tab 1 tab once daily [Active]; omeprazole 40 mg Oral cpDR 1 cap once iw daily [Active]; Indocin 25 mg Oral as needed [Active]; - PMHx: 03:05 Gallardo's Esophagus; High Cholesterol; Hypertension; Gout; iw - PSHx: 03:05 Hysterectomy; Cholecystectomy; iw - Immunization history:: Adult Immunizations up to date, Pneumococcal vaccine is up to date, Flu vaccine is up to date. - Social history:: Smoking status: Patient denies any tobacco usage or history of. - Family history:: not pertinent. Screenin:25 Abuse screen: Denies threats or abuse. Denies injuries from another. Nutritional ak2 screening: No deficits noted. Tuberculosis screening: No symptoms or risk factors identified. Fall Risk None identified. Assessment: 03:00 General: Appears in no apparent distress. comfortable, Behavior is calm, cooperative, rr5 appropriate for age. Pain: Denies pain. Neuro: Level of Consciousness is awake, alert, obeys commands, Oriented to person, place, time, situation. Cardiovascular: Reports heart beat racing Capillary refill < 3 seconds Patient's skin is warm and dry. Respiratory: Airway is patent Respiratory effort is even, unlabored, Respiratory pattern is regular, symmetrical. GI: Reports diarrhea, nausea, vomiting. : No signs and/or symptoms were reported regarding the genitourinary system. EENT: No signs and/or symptoms were reported regarding the EENT system. Derm: Skin is intact, is healthy with good turgor, Skin temperature is warm. Musculoskeletal: Circulation, motion, and sensation intact. Capillary refill < 3 seconds. 04:20 Reassessment: Patient appears in no apparent distress at this time. Patient and/or rr5 family updated on plan of care and expected duration. Pain level reassessed. Patient is alert, oriented x 3, equal unlabored respirations, skin warm/dry/pink. 05:30 Reassessment: Patient appears in no apparent distress at this time. Patient is alert, rr5 oriented x 3, equal unlabored respirations, skin warm/dry/pink. awaiting for result. 06:28 Reassessment: Patient appears in no apparent distress at this time. Patient is alert, rr5 oriented x 3, equal unlabored respirations, skin warm/dry/pink. awaiting for CT result. 06:42 Reassessment: Patient appears in no apparent distress at this time. Patient is alert, rr5 oriented x 3, equal unlabored respirations, skin warm/dry/pink. discharge instruction given and explained without complaints made. Vital Signs: 03:01 BP 193 / 82; Pulse 80; Resp 16; Pulse Ox 97% on R/A; Weight 67.59 kg; Height 5 ft. 2 iw in. (157.48 cm); Pain 0/10; 03:55 BP 165 / 95; Pulse 79; Resp 16; Pulse Ox 98% ; rr5 04:42 BP 154 / 74; Pulse 75; Resp 19; Temp 98; Pulse Ox 99% ; rr5 06:00 BP 150 / 71; Pulse 70; Resp 16; Pulse Ox 98% ; rr5 03:01 Body Mass Index 27.25 (67.59 kg, 157.48 cm) iw ED Course: 02:49 Patient arrived in ED. bp1 03:03 Triage completed. iw 03:06 Arm band placed on. iw 03:17 Julius Merino MD is Attending Physician. rowan 03:24 Willy Mack is Primary Nurse. ak2 03:25 No apparent distress. ak2 03:25 Patient has correct armband on for positive identification. ak2 03:25 No provider procedures requiring assistance completed. Inserted saline lock: 20 gauge ak2 in right antecubital area, using aseptic technique. 03:28 EKG done, by ED staff, reviewed by Julius Merino MD. rr5 03:52 XRAY Chest (1 view) In Process Unspecified. EDMS 03:55 COVID swab sent to lab. rr5 05:42 CT Head Brain wo Cont In Process Unspecified. EDMS 05:42 CT Abd/Pelvis - IV Contrast Only In Process Unspecified. EDMS 06:33 Quan Medley MD is Referral Physician. rowan 06:35 Jignesh Lipscomb MD is Referral Physician. rowan 07:10 IV discontinued, intact, bleeding controlled, No redness/swelling at site. Pressure rr5 dressing applied. Administered Medications: 03:43 Drug: NS 0.9% 1000 ml Route: IV; Rate: 1 bolus; Site: right antecubital; rr5 04:40 Follow up: Response: No adverse reaction; IV Status: Completed infusion; IV Intake: rr5 1000ml 03:43 Drug: Zofran (Ondansetron) 4 mg Route: IVP; Site: right antecubital; rr5 04:40 Follow up: Response: No adverse reaction rr5 05:00 Drug: NS 0.9% 1000 ml Route: IV; Rate: 125 ml/hr; Site: right antecubital; rr5 05:02 Drug: Cipro (ciprofloxacin) 400 mg Volume: 200 ml; Route: IVPB; Infused Over: 60 mins; rr5 Site: right antecubital; 06:44 Follow up: Response: No adverse reaction; IV Status: Completed infusion; IV Intake: rr5 100ml 05:05 Drug: Potassium Chloride 20 mEq Route: IV; Rate: per protocol; Site: right antecubital; rr5 Intake: 04:40 IV: 1000ml; Total: 1000ml. rr5 06:44 IV: 100ml; Total: 1100ml. rr5 Outcome: 06:35 Discharge ordered by MD. donahue 06:43 Discharged to home ambulatory. rr5 06:43 Condition: stable 06:43 Discharge instructions given to patient, Instructed on discharge instructions, follow up and referral plans. medication usage, Demonstrated understanding of instructions, follow-up care, medications, Prescriptions given X 2. 07:12 Patient left the ED. ak2 Signatures: Dispatcher [employer] EDMS Julius Merino MD MD cha Williams, Irene, RN RN iw Roque, Raymond, RN RN rr5 Cynthia Estrada Anthony ak2
--- NOTE | 2020-10-01 06:36 | EDPHYS ---
Physician Documentation [facility] Name: Ilda Loaiza Age: 75 yrs Sex: Female : 1945 Arrival Date: 10/01/2020 Time: 02:49 Bed 5 Private MD: TERESE Physician Julius Merino HPI: 10/01 03:41 This 75 yrs old Female presents to ER via Wheelchair with complaints of rowan Racing Heart Beat. 03:41 The patient presents with a history of heart racing. Context: The symptoms occur during rowan sleep. Onset: The symptoms/episode began/occurred this morning. Duration: The patient or guardian reports multiple episodes, that wax and wane. Modifying factors: The symptoms are aggravated by nothing. The symptoms are alleviated by nothing. The patient presents with abdominal pain in the upper abdomen, in the lower abdomen. Onset: The symptoms/episode began/occurred 3 day(s) ago. Associated signs and symptoms: Pertinent positives: cough, nausea. Associated signs and symptoms: Pertinent positives: diarrhea, nausea. Historical: - Allergies: 03:05 NKA; iw - Home Meds: 03:05 amlodipine 10 mg tab 1 tab once daily [Active]; omeprazole 40 mg Oral cpDR 1 cap once iw daily [Active]; Indocin 25 mg Oral as needed [Active]; - PMHx: 03:05 Gallardo's Esophagus; High Cholesterol; Hypertension; Gout; iw - PSHx: 03:05 Hysterectomy; Cholecystectomy; iw - Immunization history:: Adult Immunizations up to date, Pneumococcal vaccine is up to date, Flu vaccine is up to date. - Social history:: Smoking status: Patient denies any tobacco usage or history of. - Family history:: not pertinent. ROS: 03:41 Constitutional: Negative for fever, chills, and weight loss, Eyes: Negative for injury, rowan pain, redness, and discharge, ENT: Negative for injury, pain, and discharge, Neck: Negative for injury, pain, and swelling, Respiratory: Negative for shortness of breath, cough, wheezing, and pleuritic chest pain, Back: Negative for injury and pain, : Negative for injury, bleeding, discharge, and swelling, MS/Extremity: Negative for injury and deformity, Skin: Negative for injury, rash, and discoloration, Neuro: Negative for headache, weakness, numbness, tingling, and seizure, Psych: Negative for depression, anxiety, suicide ideation, homicidal ideation, and hallucinations, Allergy/Immunology: Negative for hives, rash, and allergies, Endocrine: Negative for neck swelling, polydipsia, polyuria, polyphagia, and marked weight changes, Hematologic/Lymphatic: Negative for swollen nodes, abnormal bleeding, and unusual bruising. 03:41 Cardiovascular: Positive for palpitations. 03:41 Abdomen/GI: Positive for diarrhea. Exam: 03:41 Constitutional: This is a well developed, well nourished patient who is awake, alert, rowan and in no acute distress. Head/Face: Normocephalic, atraumatic. Eyes: Pupils equal round and reactive to light, extra-ocular motions intact. Lids and lashes normal. Conjunctiva and sclera are non-icteric and not injected. Cornea within normal limits. Periorbital areas with no swelling, redness, or edema. ENT: Nares patent. No nasal discharge, no septal abnormalities noted. Tympanic membranes are normal and external auditory canals are clear. Oropharynx with no redness, swelling, or masses, exudates, or evidence of obstruction, uvula midline. Mucous membranes moist. Neck: Trachea midline, no thyromegaly or masses palpated, and no cervical lymphadenopathy. Supple, full range of motion without nuchal rigidity, or vertebral point tenderness. No Meningismus. Chest/axilla: Normal chest wall appearance and motion. Nontender with no deformity. No lesions are appreciated. Cardiovascular: Regular rate and rhythm with a normal S1 and S2. No gallops, murmurs, or rubs. Normal PMI, no JVD. No pulse deficits. Respiratory: Lungs have equal breath sounds bilaterally, clear to auscultation and percussion. No rales, rhonchi or wheezes noted. No increased work of breathing, no retractions or nasal flaring. Back: No spinal tenderness. No costovertebral tenderness. Full range of motion. Female : Normal external genitalia. Skin: Warm, dry with normal turgor. Normal color with no rashes, no lesions, and no evidence of cellulitis. MS/ Extremity: Pulses equal, no cyanosis. Neurovascular intact. Full, normal range of motion. Neuro: Awake and alert, GCS 15, oriented to person, place, time, and situation. Cranial nerves II-XII grossly intact. Motor strength 5/5 in all extremities. Sensory grossly intact. Cerebellar exam normal. Normal gait. Psych: Awake, alert, with orientation to person, place and time. Behavior, mood, and affect are within normal limits. 03:41 Abdomen/GI: Inspection: abdomen appears normal, Bowel sounds: hyperactive, Palpation: mild abdominal tenderness, in all quadrants, Liver: no appreciated palpable abnormalities, Hernia: not appreciated. 03:44 ECG was reviewed by the Attending Physician. [facility] Vital Signs: 03:01 BP 193 / 82; Pulse 80; Resp 16; Pulse Ox 97% on R/A; Weight 67.59 kg; Height 5 ft. 2 iw in. (157.48 cm); Pain 0/10; 03:55 BP 165 / 95; Pulse 79; Resp 16; Pulse Ox 98% ; rr5 04:42 BP 154 / 74; Pulse 75; Resp 19; Temp 98; Pulse Ox 99% ; rr5 06:00 BP 150 / 71; Pulse 70; Resp 16; Pulse Ox 98% ; rr5 03:01 Body Mass Index 27.25 (67.59 kg, 157.48 cm) iw MDM: 03:17 Patient medically screened. orwan 03:43 Differential diagnosis: arrythmia, dehydration, bowel obstruction, diverticulitis, rowan gastritis, gastroesophageal reflux disease. Data reviewed: vital signs, nurses notes, lab test result(s), EKG, radiologic studies, CT scan. Data interpreted: engine monitor: rate is 80 beats/min, rhythm is regular, Pulse oximetry: on room air is 97 %. Test interpretation: by ED physician or midlevel provider: ECG, plain radiologic studies. Counseling: I had a detailed discussion with the patient and/or guardian regarding: the historical points, exam findings, and any diagnostic results supporting the discharge/admit diagnosis, lab results, radiology results. 10/01 03:37 Order name: Basic Metabolic Panel [facility] 10/01 03:37 Order name: CBC with Diff 10/01 03:37 Order name: LFT's 10/01 03:37 Order name: Magnesium [facility] 10/01 03:37 Order name: NT PRO-BNP rowan 10/01 03:37 Order name: PT-INR [facility] 10/01 03:37 Order name: Troponin (emerg Dept Use Only) [facility] 10/01 03:37 Order name: Lipase [facility] 10/01 03:37 Order name: Urine Culture [facility] 10/01 03:37 Order name: Basic Metabolic Panel; Complete Time: 04:48 EDMS 10/01 03:37 Order name: CBC with Automated Diff; Complete Time: 04:10 EDSC 10/01 03:37 Order name: Liver (Hepatic) Function; Complete Time: 04:48 EDMS 10/01 03:37 Order name: XRAY Chest (1 view) [facility] 10/01 03:37 Order name: CT Head Brain wo Cont [facility] 10/01 03:37 Order name: CT Abd/Pelvis - IV Contrast Only [facility] 10/01 03:37 Order name: Magnesium; Complete Time: 04:48 EDMS 10/01 03:37 Order name: NT PRO-BNP; Complete Time: 04:48 EDSC 10/01 03:37 Order name: Protime (+INR); Complete Time: 04:24 EDMS 10/01 03:37 Order name: Troponin (Emerg Dept Use Only); Complete Time: 04:48 EDSC 10/01 03:37 Order name: Lipase; Complete Time: 04:48 EDSC 10/01 03:39 Order name: TSH; Complete Time: 04:24 [facility] 10/01 04:39 Order name: Urine Dipstick-Ancillary; Complete Time: 04:48 EDSC 10/01 04:50 Order name: SARS-COV-2 RT PCR; Complete Time: 05:21 EDSC 10/01 03:37 Order name: EKG; Complete Time: 03:38 [facility] 10/01 03:37 Order name: Cardiac monitoring; Complete Time: 04:42 [facility] 10/01 03:37 Order name: EKG - Nurse/Tech; Complete Time: 04:42 [facility] 10/01 03:37 Order name: IV Saline Lock; Complete Time: 04:41 [facility] 10/01 03:37 Order name: Labs collected and sent; Complete Time: 04:41 [facility] 10/01 03:37 Order name: O2 Per Protocol; Complete Time: 04:41 [facility] 10/01 03:37 Order name: O2 Sat Monitoring; Complete Time: 04:42 [facility] 10/01 03:37 Order name: Urine Dipstick-Ancillary (obtain specimen); Complete Time: 05:27 [facility] EC:44 Rate is 79 beats/min. Rhythm is regular. QRS [place] is Normal. ME interval is normal. QRS rowan interval is normal. QT interval is normal. No Q waves. T waves are Normal. No ST changes noted. Clinical impression: NSR w/ Non-specific ST/T Changes and No evidence of ischemia. Interpreted by me. Reviewed by me. Administered Medications: 03:43 Drug: NS 0.9% 1000 ml Route: IV; Rate: 1 bolus; Site: right antecubital; rr5 04:40 Follow up: Response: No adverse reaction; IV Status: Completed infusion; IV Intake: rr5 1000ml 03:43 Drug: Zofran (Ondansetron) 4 mg Route: IVP; Site: right antecubital; rr5 04:40 Follow up: Response: No adverse reaction rr5 05:00 Drug: NS 0.9% 1000 ml Route: IV; Rate: 125 ml/hr; Site: right antecubital; rr5 05:02 Drug: Cipro (ciprofloxacin) 400 mg Volume: 200 ml; Route: IVPB; Infused Over: 60 mins; rr5 Site: right antecubital; 06:44 Follow up: Response: No adverse reaction; IV Status: Completed infusion; IV Intake: rr5 100ml 05:05 Drug: Potassium Chloride 20 mEq Route: IV; Rate: per protocol; Site: right antecubital; rr5 Disposition: 10/01/20 06:35 Discharged to Home. 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 - Condition is Stable. - Discharge Instructions: Food Choices to Help Relieve Diarrhea, Adult, Diarrhea, Adult, Palpitations, Urinary Tract Infection, Adult, Urinary Tract Infection, Adult, [id number], Diarrhea, Adult, Qfva-bi-Oddn, Palpitations, Owzl-gt-Fgij, Renal Mass. - Prescriptions for Cipro 250 mg Oral Tablet - take 1 tablet by ORAL route every 12 hours; 14 tablet. Zofran 4 mg Oral Tablet - take 1 tablet by ORAL route every 12 hours As needed; 20 tablet. - Medication Reconciliation Form, Thank You Letter, Antibiotic Education, Prescription Opioid Use form. - Follow up: Private Physician; When: 2 - 3 days; Reason: Recheck today's complaints, Continuance of care, Re-evaluation by your physician. Follow up: Quan Medley; When: 2 - 3 days; Reason: Recheck today's complaints, Continuance of care, Re-evaluation by your physician. Follow up: Jignesh Lipscomb MD; When: 2 - 3 days; Reason: Recheck today's complaints, Re-evaluation by your physician. - Problem is new. - Symptoms have improved. Signatures: Dispatcher [employer] [facility] Julius Merino MD MD cha Williams, Irene RN LAWRENCE iw Edura Rehman RN RN rr5 Willy Mack ak2 Corrections: (The following items were deleted from the chart) 04:06 03:39 CORONAVIRUS+MR.LAB.BRZ ordered. [facility] 07:12 06:35 10/01/2020 06:35 Discharged to Home. 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 Condition is Stable. Discharge Instructions: Food Choices to Help Relieve Diarrhea, Adult, Diarrhea, Adult, Palpitations, Diarrhea, Adult, Gnph-gw-Ozhv, Palpitations, Foiv-hh-Fobk, Urinary Tract Infection, Adult, Urinary Tract Infection, Adult, Xhcr-io-[id number]. Prescriptions for Cipro 250 mg Oral Tablet - take 1 tablet by ORAL route every 12 hours; 14 tablet, Zofran 4 mg Oral Tablet - take 1 tablet by ORAL route every 12 hours As needed; 20 tablet. and Forms are Medication Reconciliation Form, Thank You Letter, Antibiotic Education, Prescription Opioid Use. Follow up: Private Physician; When: 2 - 3 days; Reason: Recheck today's complaints, Continuance of care, Re-evaluation by your physician. Follow up: Quan Medley; When: 2 - 3 days; Reason: Recheck today's complaints, Continuance of care, Re-evaluation by your physician. Follow up: Jignesh Lipscomb; When: 2 - 3 days; Reason: Recheck today's complaints, Re-evaluation by your physician. Problem is new. Symptoms have improved. rowan
[2020-10-01 07:20] VITALS: TEMP 98
[2020-10-01 07:22] VITALS: BP 150/71; O2SAT 98
--- NOTE | 2020-10-01 08:42 | RAD REPORT ---
EXAM DESCRIPTION: CT Abdomen and Pelvis With Intravenous Contrast CLINICAL HISTORY: The patient is 75 years old and is Female; ABD PAIN TECHNIQUE: Axial computed tomography images of the abdomen and pelvis with intravenous contrast. S agittal and coronal reformatted images were created and reviewed. This CT exam was performed using one or more of the following dose reduction techniques: automated exposure control, adjustment of t he mA and/or kV according to patient size, and/or use of iterative reconstruction technique. COMPARISON: No relevant prior studies available. FINDINGS: Lung bases: Unremarkable. No mass. No consolidation. ABDOMEN: Liver: 1.2 cm low-density lesion in the right liver which is nonspecific but may represent a hem angioma. Gallbladder and bile ducts: Gallbladder is surgically absent. No ductal dilation. Pancreas: Unremarkable. No mass. No ductal dilation. Spleen: Unremarkable. No splenomegaly. Adrenals: Prominent left adrenal gland with coarse calcification suggestive of prior insult/inju ry. Kidneys and ureters: There is a 3.2 x 3.0 x 2.3 cm heterogeneous mass in the inferior right kidn ey. No hydronephrosis. Stomach and bowel: Scattered colonic diverticula without evidence of diverticulitis. No obstruction. PELVIS: Appendix: No findings to suggest acute appendicitis. Bladder: Unremarkable. No mass. Reproductive: Unremarkable as visualized. ABDOMEN and PELVIS: Intraperitoneal space: Unremarkable. No free air. No significant fluid collection. Bones/joints: Minimal anterolisthesis of L4 on L5. No acute fracture. No dislocation. Soft tissues: Unremarkable. Vasculature: Scattered atherosclerotic vascular calcifications. No abdominal aortic aneurysm. Lymph nodes: Unremarkable. No enlarged lymph nodes. IMPRESSION: There is a 3.2 x 3.0 x 2.3 cm heterogeneous mass in the inferior right kidney. Finding is concerning for malignancy. Consider renal protocol CT for further evaluation. Electronically signed by: Jasper Melendez MD 10/01/2020 6:27 AM CDT Due to temporary technical issues with the PACS/Fluency reporting system, reports are being signed by the in house radiologist without review as a courtesy to ensure prompt reporting. The interpreting r adiologist is fully responsible for the content of the report.
--- NOTE | 2020-10-01 08:43 | RAD REPORT ---
EXAM DESCRIPTION: CT Head Without Intravenous Contrast CLINICAL HISTORY: The patient is 75 years old and is Female; Dizziness;Headache TECHNIQUE: Axial computed tomography images of the head/brain without intravenous contrast. Sagitt al and coronal reformatted images were created and reviewed. This CT exam was performed using one o r more of the following dose reduction techniques: automated exposure control, adjustment of the mA and/or kV according to patient size, and/or use of iterative reconstruction technique. COMPARISON: No relevant prior studies available. FINDINGS: Brain: Unremarkable. No hemorrhage. No significant white matter disease. No edema. Ventricles: Unremarkable. No ventriculomegaly. Bones/joints: Unremarkable. No acute fracture. Soft tissues: Unremarkable. Sinuses: Unremarkable as visualized. Mastoid air cells: Unremarkable as visualized. No mastoid effusion. IMPRESSION: No acute intracranial abnormality. Electronically signed by: Jasper Melendez MD 10/01/2020 6:08 AM CDT Due to temporary technical issues with the PACS/Fluency reporting system, reports are being signed by the in house radiologist without review as a courtesy to ensure prompt reporting. The interpreting r adiologist is fully responsible for the content of the report.
--- NOTE | 2020-10-01 08:48 | RAD REPORT ---
EXAM DESCRIPTION: RAD - Chest Single View - 10/01/2020 3:52 am CLINICAL HISTORY: COUGH Chest pain. COMPARISON: Chest Single View dated 05/29/2018; Chest Single View dated 12/06/2017; Chest Single View dated 01/02/2017; CHEST PA AND LAT 2 VIEW dated 07/08/2014 FINDINGS: Portable technique limits examination quality. Small area of subsegmental atelectasis is seen in the left mid lung laterally. The lungs are otherwis e clear. The heart is normal in size. No displaced fractures.
== END 2020-10-01 07:12 | disposition home or self-care (01) ==
LOC: ER 02:46
DX: E87.6 Hypokalemia (principal); N39.0 Urinary tract infection, site not specified; R19.7 Diarrhea, unspecified; D41.01 Neoplasm of uncertain behavior of right kidney; I10 Essential (primary) hypertension; E78.00 Pure hypercholesterolemia, unspecified; Z20.822 Contact with and (suspected) exposure to COVID-19
CPT/HCPCS: 96365; 96361; 87088; 85025; 87086; 80048; 36415; 83735; 85610; 80076; 84443; 81003; 84484; 83690; 83880; 70450; 74177; 71045; 96375; 99284; 96366; U0003; Q9967; J3480; J7030 ×2; J2405; J0744; 93005

== ENCOUNTER 2021-06-28 06:15 | Inpatient (IN) | payer MEDICARE ==
[2021-06-23 09:46] LABS: Absolute Lymphocytes (CBC) 1.4 K/uL (0.7-4.9); Hematocrit 45.4 % (36.0-45.0); Lymphocytes % 21.2 % (15.3-44.8); MPV 7.3 fL (7.6-11.3); RBC Red Blood Cell Count 5.29 M/uL (3.86-4.86)
[2021-06-23 10:01] LABS: Protime INR 1.03
[2021-06-23 10:16] LABS: Urine Appearance CLEAR (Clear); Urine Bilirubin NEGATIVE (Negative); Urine Blood NEGATIVE (Negative); Urine Color YELLOW (Yellow); Urine Glucose NEGATIVE (Negative); Urine Protein NEGATIVE (Negative); Urine Urobilinogen 0.2 mg/dL (0.2-1.0)
[2021-06-23 10:17] LABS: Urine Microscopic Reflex NO UMIC
--- NOTE | 2021-06-23 10:21 | RAD REPORT ---
EXAM DESCRIPTION: RAD - Chest Pa And Lat (2 Views) - 06/23/2021 9:39 am CLINICAL HISTORY: pre op Chest pain. COMPARISON: Chest Single View dated 10/01/2020; Chest Single View dated 05/29/2018; Chest Single View dated 12/06/2017; Chest Single View dated 01/02/2017 FINDINGS: The lungs are clear. The heart is upper limit normal in size. No displaced fractures. IMPRESSION: No acute or concerning finding suspected.
[2021-06-28] MEDS ORDERED: Ringers Lactate 1,000 ML IV ONE ×2 (06:49→08:54)
[2021-06-28] MEDS ORDERED: MIDAZOLAM HCL 2 MG/2 ML INJ ONE (06:50)
[2021-06-28] MEDS ORDERED: KETAMINE HCL 500 MG/5 ML VIAL ONE (06:50)
[2021-06-28] MEDS ORDERED: dexAMETHasone 10 MG/ML VIAL ONE (06:50)
[2021-06-28] MEDS ORDERED: ROCURONIUM 50 MG/5 ML VIAL IV ONE (06:50)
[2021-06-28] MEDS ORDERED: LIDOCAINE 2% MPF 5 ML VIAL ONE (06:50)
[2021-06-28] MEDS ORDERED: FENTANYL CITR 250 MCG/5 ML ONE (06:50)
[2021-06-28] MEDS ORDERED: propofoL 200 MG/20 ML VIAL IV ONE (06:50)
[2021-06-28] MEDS ORDERED: ONDANSETRON 4 MG/2 ML VIAL ONE (06:51)
[2021-06-28] MEDS ORDERED: HEPA 1000U/500MLS 1,000 UNIT/500 ML BAG IV ONE (06:58)
[2021-06-28] MEDS ORDERED: SCOPOLAMINE HYDROBROMIDE PATCH TD ONE (07:05)
[2021-06-28] MEDS ORDERED: ACETAMINOPHEN 500 MG TAB PO PRN (07:32)
[2021-06-28] MEDS ORDERED: NALOXONE 0.4 MG/ML VIAL IV PRN (07:32)
[2021-06-28] MEDS ORDERED: HYDROMORPHONE/PCA 10 MG/50 ML SYR IV PRN (07:32)
[2021-06-28] MEDS: CEFAZOLIN 1 GM in NA CHLORIDE 0.9% 50 ML IVPB SCH ×3 (07:40→22:51)
[2021-06-28] MEDS ORDERED: BISACODYL 10 MG RECTAL SUPP PR PRN (07:43)
[2021-06-28] MEDS ORDERED: EPHEDRINE SULF 50 MG/ML VIAL ONE (08:10)
[2021-06-28] MEDS ORDERED: VECURONIUM 10 MG/VIAL IV ONE (08:26)
[2021-06-28] MEDS ORDERED: GLYCOPYRROLATE 0.2 MG/ML SYR ONE ×2 (08:34→10:22)
[2021-06-28] MEDS ORDERED: NEOSTIGMINE 1 MG/ML -5 ML ONE (10:23)
[2021-06-28] MEDS: HYDROMORPHONE HCL 1 MG/ML INJ ONE ×2 (11:25→11:55)
[2021-06-28] MEDS: D5 0.45 NS 1,000 ML IV SCH ×3 (11:47→23:45)
--- OUTSIDE RECORDS SUMMARY | 2021-06-28 13:21 | XMS REPORT | Continuity of Care Document ---
:1945 Author Organization [facility] t Address [address] [place] [address] Care Team Providers Name Role Phone Yuly Gonzalez Attending Clinician Unavailable Chris Attending Clinician Unavailable Elen Attending Clinician Unavailable Shaun Attending Clinician Unavailable Caleb Attending Clinician Unavailable NAN Attending Clinician Unavailable NIRANJAN_Emerson Attending Clinician Unavailable Caleb Admitting Clinician Unavailable NAN Admitting Clinician Unavailable NIRANJAN_Emerson Admitting Clinician Unavailable Payers Payer Name Policy Type Policy Number Effective Date Expiration Date S dameon [employer] [id number] (MEDICARE 00:00:00 REPLACEMENT HMO) [employer] D [id number] 2020 MCR 00:00:00 Problems This patient has no known problems. Allergies, Adverse Reactions, Alerts Allergy Allergy Status Severity Reaction(s) Onset Inactive Treating Comm ents Source Name Type Date Date Clinician NO KNOWN Allergy Active [facility] Medications Ordered Filled Start Stop Current Ordering [...] [facility] Vital Signs Vital Name Observation Time Observation Value Comments Source HEIGHT 2021-03-02 13:00:00 157.5 cm WEIGHT 2021-03-02 13:00:00 65.772 kg HEIGHT 2021-03-01 12:56:00 157.5 cm WEIGHT 2021-03-01 12:56:00 65.772 kg HEIGHT 2021-03-02 13:00:00 157.5 cm WEIGHT 2021-03-02 13:00:00 65.772 kg HEIGHT 2021-03-01 12:56:00 157.5 cm WEIGHT 2021-03-01 12:56:00 65.772 kg Procedures This patient has no known procedures. Encounters Start End Encounter Admission Attending Care Care Encounter Source Date/Time Date/Time Type Type Clinicians Facility Department ID 2021-06-24 Out[facility] [id number] [facility]21[facility] 2021-06-08 Out[facility] Corn[facility] [id number] [facility] 14:38:27 [facility] 2021-06-08 [facility] Corn[facility] [id number] [facility] [address] 13:48:26 [id number] [facility] 2021-06-08 Out[facility] Corn[facility] [id number] [facility] 13[facility]10:08 [id number] [facility] 2021-06-08 Out[facility] [id number] [facility] 13:09:20 [id number] [facility] 2021-06-08 Outpatient Gonzalez, Na [facility] [id number] [facility] 13:08:07 [id number] [facility] 2021-06-08 Outpatient Lisa, Na [facility] [id number] [facility] 12:44:58 [id number] [facility] 2021-06-08 Outpatient Lisa, Na [facility] [id number] [facility] 12:33:05 [id number] [facility] 2021-06-08 Outpatient Lisa, Na [facility] [id number] [facility] 12:32:13 [id number] [facility] 2021-06-08 Outpatient Lisa, Na [facility] [id number] [facility] 12:16:48 [id number] [facility] 2021-06-08 Outpatient Robi Perez [facility] [id number] [facility] 12:06:49 [id number] [facility] 2021-06-08 Outpatient [facility] [id number] [facility] 11:59:04 [id number] [facility] 2021-06-08 Outpatient Elen, [facility] [id number] 11:[facility]:08 Carla [id number] [facility] 2021-06-08 Outpatient Elen, [facility] [id number] 11:19:30 Carla [id number] [facility] 2021-06-08 Outpatient Elen, [facility] [id number] 11:15:48 Carla [id number] [facility] 2021-06-08 Outpatient Elen, [facility] [id number] 11:04:00 Carla [id number] [facility] 2021-06-08 Outpatient Shaun, [facility] [id number] [facility] 10:59:47 Basil [id number] [facility] 2021-06-14 2021-06-[address] [facility] [id number] [facility] 06[facility]40:00 06:40:00 [facility] 2021-06-09 2021-06-09 ambulatory [facility] [id number] [facility] 2021-05-31 2021-05-31 ambulatory [facility] [id number] [facility] 2021-05-26 2021-05-26 ambulatory [facility] [id number] [facility] 2021-05-12 2021-05-[address] [facility] [id number] [facility] 12:19:00 12:19:00 [id number] [facility] 2021-03-07 2021-03-07 Outpatient [facility] [id number] [facility] 2021-03-02 2021-03-02 Outpatient UR LIPSCOMB, [facility] [id number] [facility] 09:54:00 20:43:00 [place] 2021-03-02 2021-03-02 Outpatient EL [facility] [id number] [facility] 09:47:27 09:47:27 2021-03-02 2021-03-02 Outpatient EL NAN, [facility] [id number] [facility] 09:40:02 09:40:02 [place] 2021-03-02 2021-03-02 Outpatient EL NAN, [facility] [id number] [facility] 09:39:53 09:39:53 [place] 2021-03-02 2021-03-02 Outpatient [facility] [id number] [facility] 2021-03-01 2021-03-01 Outpatient EL [facility] [id number] [facility] 13:17:16 23:59:00 2021-02-22 2021-02-22 Outpatient [facility] [id number] [facility] 2021-02-08 2021-02-08 Outpatient [facility] [id number] [facility] 2021-02-02 2021-02-02 Outpatient [facility] [id number] [facility] 2021-01-24 2021-01-24 Outpatient [facility] [id number] [facility] 2021-01-24 2021-01-24 Outpatient [facility] [id number] [facility] 2021-01-21 2021-01-21 Outpatient [facility] [id number] [facility] 2021-01-21 2021-01-21 Outpatient [facility] [id number] [facility] 2021-01-19 2021-01-19 Outpatient [facility] [id number] [facility] 2021-01-10 2021-01-10 Outpatient [facility] [id number] [facility] 2020-11-10 2020-11-10 Outpatient [facility] [id number] [facility] 2020-10-13 2020-10-13 Outpatient [facility] [id number] [facility] 2020-10-13 2020-10-13 Outpatient [facility] [id number] [facility] 2020-10-04 2020-10-04 Outpatient [facility] [id number] [facility] 2020-09-15 2020-09-15 Outpatient GAYLORD_S DMG DMG [id number] [facility] 02:32:00 02:32:00 0505 [facility] 2020-09-02 2020-09-02 Outpatient [facility] [id number] [facility] 2020-08-30 2020-08-30 Outpatient [facility] [id number] [facility] 2020-07-08 2020-07-08 Outpatient [facility] [id number] [facility] 2020-05-10 2020-05-10 Outpatient [facility] [id number] [facility] 2020-04-05 2020-04-05 Outpatient [facility] [id number] [facility] 2019-12-25 2019-12-25 [facility] [id number] [facility] 10:02:00 10:02:00 [facility] 2019-12-23 2019-12-23 [facility] [id number] [facility] 08:40:00 08:40:00 [facility] 2019-12-10 2019-12-10 [facility] [id number] [facility] 08:20:00 08:20:00 [facility] 2019-10-14 2019-10-14 [facility] [id number] [facility] 09:20:00 09:20:00 [facility] 2019-09-11 2019-09-11 [facility] [id number] [facility] 08:56:00 08:56:00 [facility] 2019-09-10 2019-09-10 [facility] [id number] [facility] 08:15:00 08:15:00 [facility] Clin[facility] 2019-06-11 2019-06-11 [facility] [id number] 21:53:00 21:53:00 [facility]pat[facility] 2019-06-11 2019-06-11 [facility] [id number] 10:30:00 10:30:00 [facility] Results Test Description Test Time Test Comments Results Result [facility] e Comments TISSUE EXAM 2021-02-12 Surgical Pathology 2 Report 12:51:50 Case: [id number] Authorizing Provider: Jignesh Lipscomb MD Collected: 03/02/2021 02:43 PM Ordering Location: [facility] Received: 03/02/2021 03:47 PM SERVICES Pathologist: Lis Gaspar MD Specimen: Kidney, Right RIGHT RENAL MASS, 3.3 CM, NEEDLE CORE BIOPSIES: - CLEAR CELL RENAL CELL CARCINOMA (SEE COMMENT) Signing Pathologist Direct Phone Line: [phone] ly signed by Lis Gaspar MD on 03/04/2021 at 12:51 PMCLINICIAN NOTIFIED: Dr. Jignesh Lipscomb was notified of these findings via secure e-mail on March 04, 2021.Right renal mass (3.3 cm)Right kidneyA. Received in formalin labeled with the patient's name, medical record number and "right kidney" are three galvez-yellow to red fine core biopsies ranging 0.6 to 1.9 cm in length and 0.1 cm each in diameter. The specimen is filtered and submitted in toto in cassette A1. MJP/pl Performed. The interpretation of this case included the use of immunohistochemistry or special stains.Control Slides Examined: In-house known positive controls were evaluated along with the test tissue. These control slides run alongside of the patients sample show appropriate staining. Internal positive and negative controls when available are evaluated Immunohistochemistry technical testing was performed at [facility], Pathology Laboratory where it was developed and its performance characteristics were determined. It has not been cleared or approved by the U.S. Food and Drug Administration. The FDA has determined that such clearance or approval is not necessary. The test is used for clinical purposes. It should not be regarded as investigational or for research. This laboratory is certified under the Clinical Laboratory Improvement Amendments of 1988 (CLIA-88) as qualified to perform high complexity clinical laboratory testing. U/S, BIOPSY, 2021-02-12 Approved by RENAL (KIDNEY) 0 [id number]\\[id number] 17:55:[address] [facility] in [facility]ENTER[facility]: @ [facility] LIZAMA for WALTER : Exam:->Right 1945 Sex: renal mass F FINAL REPORT Ultrasound guided renal core biopsy, 03/02/2021. Clinical History: Right renal mass. Modality: Ultrasound. Sedation: 0.5 mg Versed and 25 mcg Fentanyl IV was used for moderate sedation monitored under my direction. The patient's vital signs were monitored throughout the procedure and recorded to the patient's medical record by the nurse. Total intra-service time of sedation was 20 minutes. Economics Instructor: Nini. Hose Suspender Cutter: None. Estimated Blood Loss: 2cc. Specimen: Two 18-gauge core biopsy specimens, placed in formalin and sent to pathology. Technique: Informed consent was obtained. The risks of pain, bleeding, infection, injury to kidney/adjacent structures, transfusion risks, moderate sedation risks, and adverse medication reactions were discussed with the patient. After informed consent was obtained, the patient's right kidney was scanned with the patient in the prone position. The 3.2 cm medial mass was identified for biopsy. After the skin was prepped and draped in the usual sterile manner, the area was anesthetized with 2% lidocaine. After a small skin incision was made, a 18 gauge Biopince core biopsy needle was advanced into the mass, under direct sonographic observation. Two passes were made with 2 core biopsy specimens obtained. Post procedure sonographic evaluation of the area reveals no hematoma. The patient tolerated the procedure well, without immediate complications. Patient Disposition: The patient was sent in good condition to the observation area for vital sign monitoring and bed rest. Impression: Successful and uncomplicated ultrasound guided right renal mass core biopsy performed with conscious sedation. Signed: Fermin Terrazas MDReport Verified Date/Time: 03/02/2021 17:55:46 Reading Location: [address] Body Reading Room C METABOLIC PANEL 2021-03-02 10:41:37 Test Item Value Reference Range Interpretation Comme nts SODIUM (BEAKER) (test code 143 meq/L 136-145 = 381) POTASSIUM (BEAKER) (test 4.3 meq/L 3.5-5.1 code = 379) CHLORIDE (BEAKER) (test 109 meq/L 98-107 H code = 382) CO2 (BEAKER) (test code = 26 meq/L 22-29 355) BLOOD UREA NITROGEN 19 mg/dL 7-21 (BEAKER) (test code = 354) CREATININE (BEAKER) (test 0.91 mg/dL 0.57-1.25 code = 358) GLUCOSE RANDOM (BEAKER) 100 mg/dL 70-105 (test code = 652) CALCIUM (BEAKER) (test code 9.4 mg/dL 8.4-10.2 = 697) EGFR (BEAKER) (test code = 61 mL/min/1.73 sq m ESTIMATED GFR IS NOT 1092) ACCURATE CRE ATININE CLEARANCE IN ND EDICTING GLOMERULAR FILT RATION RATE. ESTIMATED GFR IS NOT APPLICABLE FOR DIALYSIS PATIENTS. Civil Service Clerk ID - [id number] TIME/[id number] 10:33:57 Test Item Value Reference Range Interpretation Comments PROTIME (BEAKER) 13.4 seconds 11.9-14.2 (test code = 759) INR (BEAKER) (test 1.04 See_Comment [Automat ed message] code = 370) The system VeriShow generated this result transmitted ref erence range: <=5.90. The reference range was not used to int erpret this result as normal/abnormal . RECOMMENDED COUMADIN/WARFARIN INR THERAPY RANGESSTANDARD DOSE: 2.0 - 3.0 Includes: PROPHYLAXIS forvenous thrombosis, systemic embolization; TREATMENT for venous thrombosis and/or pulmonary embolus.HIGH RISK: Target INR is 2.5-3.5 for patients with mechanical heart valves.CBC W/PLT COUNT & AUTO DIFFERENTIAL 2021-03-02 10:19:51 Test Item Value Reference Range Interpretation Comments WHITE BLOOD CELL COUNT (BEAKER) 6.8 K/ L 3.5-10.5 (test code = 775) RED BLOOD CELL COUNT (BEAKER) 5.27 M/ L 3.93-5.22 H (test code = 761) HEMOGLOBIN (BEAKER) (test code = 15.1 GM/DL 11.2-15.7 410) HEMATOCRIT (BEAKER) (test code = 46.3 % 34.1-44.9 H 411) MEAN CORPUSCULAR VOLUME (BEAKER) 87.9 fL 79.4-94.8 (test code = 753) MEAN CORPUSCULAR HEMOGLOBIN 28.7 pg 25.6-32.2 (BEAKER) (test code = 751) MEAN CORPUSCULAR HEMOGLOBIN CONC 32.6 GM/DL 32.2-35.5 (BEAKER) (test code = 752) RED CELL DISTRIBUTION WIDTH 13.4 % 11.7-14.4 (BEAKER) (test code = 412) PLATELET COUNT (BEAKER) (test 259 K/CU MM 150-450 code = 756) MEAN PLATELET VOLUME (BEAKER) 9.6 fL 9.4-12.3 (test code = 754) NUCLEATED RED BLOOD CELLS 0 /100 WBC 0-0 (BEAKER) (test code = 413) NEUTROPHILS RELATIVE PERCENT 65 % (BEAKER) (test code = 429) LYMPHOCYTES RELATIVE PERCENT 23 % (BEAKER) (test code = 430) MONOCYTES RELATIVE PERCENT 8 % (BEAKER) (test code = 431) EOSINOPHILS RELATIVE PERCENT 3 % (BEAKER) (test code = 432) BASOPHILS RELATIVE PERCENT 1 % (BEAKER) (test code = 437) NEUTROPHILS ABSOLUTE COUNT 4.41 K/ L 1.56-6.13 (BEAKER) (test code = 670) LYMPHOCYTES ABSOLUTE COUNT 1.57 K/ L 1.18-3.74 (BEAKER) (test code = 414) MONOCYTES ABSOLUTE COUNT (BEAKER) 0.53 K/ L 0.24-0.36 H (test code = 415) EOSINOPHILS ABSOLUTE COUNT 0.18 K/ L 0.04-0.36 (BEAKER) (test code = 416) BASOPHILS ABSOLUTE COUNT (BEAKER) 0.06 K/ L 0.01-0.08 (test code = 417) IMMATURE GRANULOCYTES-RELATIVE 0 % 0-1 PERCENT (BEAKER) (test code = 7338)
[2021-06-28] MEDS: ONDANSETRON 4 MG/2 ML VIAL IV PRN ×2 (18:37→23:45)
[2021-06-28 18:52] LABS: Urine Appearance CLOUDY (Clear); Urine Bilirubin NEGATIVE (Negative); Urine Blood 1+ (Negative); Urine Color YELLOW (Yellow); Urine Glucose TRACE (Negative); Urine Protein TRACE (Negative); Urine Specific Gravity 1.015 (1.005-1.030); Urine Urobilinogen 0.2 mg/dL (0.2-1.0)
[2021-06-28 19:18] LABS: Urine Microscopic Reflex ORDER UMIC
[2021-06-28 19:22] LABS: Urine Bacteria 20-50 /HPF (<20); Urine Mucus 1+ /HPF (NONE SEEN)
--- NOTE | 2021-06-28 21:28 | OP ---
Date of Procedure: 06/28/2021 Surgeon: JU MONTANA Preoperative Diagnosis: Right 3.7 cm renal cell carcinoma. Postoperative Diagnoses: 1. Right 3.7 cm renal cell carcinoma. 2. Subhepatic adhesions. Principal Procedure: 1. Laparoscopic right radical nephrectomy. 2. Lysis of subhepatic cholecystectomy fossa adhesions. Indication For Procedure: Ms. Loaiza is a 76-year-old woman, who underwent a hysterectomy and laparoscopic cholecystectomy, who presented to the Urology Clinic with a 3.7 cm centrally-enhancing right lower pole renal mass. She underwent an Interventional Radiology guided biopsy on 03/02/2021. Pathology revealing clear cell renal cell carcinoma. She initially elected to observe, but on followup, the mass was noted to have increased in size, and given the risks associated, she elected surgical therapy and given the central location of the mass, she elected to proceed with a radical nephrectomy as opposed to a partial nephrectomy with the attendant risks associated. Procedure In Detail: The patient was consented in the preoperative holding area before being transferred to the operative suite, where general anesthesia was induced. An OG tube was placed for gastric decompression and an arterial line for blood pressure monitoring. She was given Ancef IV antimicrobial prophylaxis, and pneumo boots were provided for DVT prophylaxis. She was placed in the lateral decubitus position with her right side up, padded and secured to the table appropriately with an axillary roll beneath her left axilla. A urethral Sanchez catheter had been placed shortly after induction of anesthesia by the Nursing. The urine was clear yellow. The case was then begun by prepping and draping her abdomen in standard fashion using ChloraPrep. A Veress needle was used to gain intraabdominal access, and appropriate intraperitoneal pressures were obtained. I then increased the pressure to 15 mmHg, and her abdomen did distend appropriately. Then, using a 0-degree lens and a 5 mm optical trocar, in the anticipated upper quadrant midline location for the 5 mm port, the optical 5 was inserted in this location. Appropriate intraperitoneal access was obtained, and the internal component of her abdomen was surveyed. In the region of the umbilicus, where the proposed camera port was to go in, there were adhesions there associated with a small umbilical hernia. Additionally, adhesions were noted in the region of the cholecystectomy fossa. Initially, I placed the 12 mm right lateral quadrant trocar after instilling Marcaine subcutaneously, and then I utilized an Endo Ray and LigaSure to take down the mesenteric adhesions going to the umbilical hernia in the region of the camera port trocar site. Once these adhesions were taken down, I then was able to instill subcutaneously with Marcaine at infraumbilical incision, and then placed a 12 mm trocar under direct vision. With all ports in place, we then used a 30- degree 10 mm lens to visualize the kidney and the overlying colon. I then placed an additional 5 mm trocar in the left upper quadrant as a liver retractor. A locking grasper was used to elevate the border of the liver. Then, the significant adhesions in the cholecystectomy fossa were noted overlying the duodenum and the superior region of the kidney. As a result, I spent several minutes carefully lysing the adhesions from the capsule of the liver, taking care to avoid injury into the liver capsule. This was done sharply and with LigaSure cautery as necessary until enough of the adhesions were released to visualize the superomedial border of the kidney. I then elevated the liver with the liver retractor by grasping an area overlying the ribs beneath the diaphragm. I then lysed an additional adhesion attaching the liver to the superior pole of the kidney. Once this was done, I then began reflecting the colon by dividing along the line of Toldt. Once this was done, the colon was completely medialized until the IVC was visualized. The duodenum was also visualized and was gently kocherized. I then turned my attention to the tail of Gerota's, which was then elevated, and the gonadal vessel was visualized. The ureter was then visualized beneath it, and I elevated the ureter and dissected along the psoas to the sidewall. I then divided the attachments between the psoas and the Gerota's fascia sharply and using the LigaSure were necessary marching along the IVC until the gonadal vessel was encountered entering the IVC. There, I used metal clips to ligate the gonadal vessel, and then divided it. I then continued the march toward the hilum and eventually observed the right renal artery posterior to the right renal vein, which was bipartite. I then dissected the renal artery and it from the renal vein circumferentially, and then was able to use a MARY ANNE with vascular load to ligate the renal artery and divided. Once this had been done, I continued dissection and identified the superior renal vein and with both in vision, I then utilized an additional MARY ANNE with vascular load to divide both of the renal veins following along the IVC. This was done sparing the adrenal gland. Once the renal veins were divided, I was then able to utilize the LigaSure to divide the superior attachments to Gerota's and the superolateral attachments. I then returned to the ureter, where I clipped the ureter with metal clips and then divided it as well as dissecting the tail of Gerota's and laterally until I met the superior-most dissection and the kidney was free. The kidney was then placed into a 10 cm EndoCatch bag, and the pressure in her abdomen was decreased to 8 mmHg. I performed a careful search for bleeding, and when none was noted, I placed an additional metal clip over the renal artery staple line, and then we performed a Valentin-Luis closure of the 12 mm right lateral quadrant trocar site using 0 Vicryl suture. Once this was performed, I then instilled 0.25% Marcaine subcutaneously, extending the incision from the infraumbilical camera port approximately 5 cm additionally. This was then incised using a 15 blade and then, electrocautery was used to take it down through the subcutaneous tissues and the fat until the fascia was visualized. The fascia was then divided and the muscle was lateralized and the lower component of the fascia was similarly divided allowing entry into the peritoneum. The EndoCatch bag was grasped and the kidney was easily removed from the incision. I then utilized #1 PDS suture to perform a running closure of the fascia from below and an additional suture from above, tying them both in the midline. The subcutaneous tissues were then irrigated using saline, and her abdomen was again insufflated. I then removed the 5 mm trocars under direct vision ensuring no bleeding, and once this was done, we decompressed her abdomen of carbon dioxide gas and removed the 12 mm right lateral quadrant trocar site, tying down the pre-placed Valentin-Luis suture. All the remaining incisions were irrigated, and then closed using 4-0 Monocryl suture. Dermabond was used to seal the skin, and the case was completed. The patient was taken out of the decubitus position, awakened from general anesthesia, transferred to a stretcher, and then transferred to the recovery room in good condition. Complications: None. Discharge Disposition: Standard postop nephrectomy pathway. FRANCISCO/KAVITHAL Voice ID: [id number] Report ID: [id number] MTDD
[2021-06-28] MEDS: FAMOTIDINE 20 MG TAB PO SCH (22:51)
[2021-06-29 05:38] LABS: Hematocrit 39.3 % (36.0-45.0)
[2021-06-29 05:39] LABS: Absolute Lymphocytes (CBC) 0.9 K/uL (0.7-4.9); Lymphocytes % 5.6 % (15.3-44.8); MPV 7.8 fL (7.6-11.3)
[2021-06-29] MEDS: ONDANSETRON 4 MG/2 ML VIAL IV PRN ×3 (05:44→22:31)
[2021-06-29] MEDS: AMLODIPINE 10 MG TAB PO SCH (06:39)
[2021-06-29] MEDS ORDERED: NA CHLORIDE 0.9% 500 ML IV ONE (07:56)
[2021-06-29] MEDS: CEFAZOLIN 1 GM in NA CHLORIDE 0.9% 50 ML IVPB SCH (09:27)
[2021-06-29] MEDS: MAGNESIUM HYDROXIDE 8% 30 ML PO SCH (09:30)
[2021-06-29] MEDS: D5 0.45 NS 1,000 ML IV SCH ×2 (12:33→22:30)
[2021-06-29] MEDS ORDERED: lisinopriL 10 MG TAB PO ONE (14:01)
[2021-06-29] MEDS: FAMOTIDINE 20 MG TAB PO SCH (20:30)
--- NOTE | 2021-06-29 21:18 | P.PN ---
Subjective Date of Service: 06/29/21 Chief Complaint: s/p right laparoscopic radical nephrectomy She c/o nausea overnight, and she had a single episode of emesis. She denies any significant pain. She also has had no flatus as of yet. Since the morning, she has gotten OOB to a chair, but she has not ambulated significantly. She is tolerating liquids well, and has not required any Zofran since early afternoon. Physical Examination - Vital Signs Temperature: 99.3 F Blood Pressure: 167/92 Pulse: 65 Respirations: 18 Pulse Ox (%): 93 - Physical Exam General: Alert, In no apparent distress, Oriented x3 Respiratory: Normal air movement Gastrointestinal: Soft and benign, Non-distended, No tenderness, No rebound, No guarding Musculoskeletal: No tenderness Neurological: Normal speech, Normal affect Urinary: Sanchez catheter (No Adrianne's sign) - Studies Laboratory Data (last 24 hrs) 06/29/21 05:07: Sodium 137, Potassium 4.0, BUN 20 H, Creatinine 1.31 H, Glucose 127 H 06/29/21 05:07: WBC 15.60 H D, Hgb 12.8, Hct 39.3, Plt Count 213 Assessment And Plan - Plan 76yo woman with HTN s/p Right laparoscopic radical nephrectomy POD#1 doing well but awaiting return of bowel function. - Ambulate QID with assist - I.S. 10x/hr while awake - Dulcolax supp now - Remove Sanchez catheter at Midnight and ensure patient able to void by 8AM - Improve BP control. Will consider adding 12.5mg HCTZ to once daily Lisinopril to minimize home dose of 10mg BID Lisinopril - AMLabs - MOM + Dulcolax supp in AM Discharge Plan: Home Plan to discharge in: 24 Hours - Code Status/Comfort Care Code Status: Full Code Critical Care: No Time Spent Managing PTS Care (In Minutes): 30
[2021-06-30] MEDS: ONDANSETRON 4 MG/2 ML VIAL IV PRN (03:36)
[2021-06-30 06:06] LABS: Absolute Lymphocytes (CBC) 0.8 K/uL (0.7-4.9); Hematocrit 38.8 % (36.0-45.0); Lymphocytes % 6.6 % (15.3-44.8); MPV 7.8 fL (7.6-11.3); RBC Red Blood Cell Count 4.56 M/uL (3.86-4.86)
[2021-06-30 06:23] LABS: Potassium 3.7 mmol/L (3.5-5.1)
[2021-06-30 08:50] VITALS: O2SAT 92
[2021-06-30] MEDS ORDERED: lisinopriL 10 MG TAB PO SCH (09:00)
[2021-06-30] MEDS: MAGNESIUM HYDROXIDE 8% 30 ML PO SCH (09:00)
[2021-06-30] MEDS ORDERED: BISACODYL 10 MG RECTAL SUPP PR SCH (09:00)
[2021-06-30] MEDS: AMLODIPINE 10 MG TAB PO SCH (09:20)
[2021-06-30] MEDS ORDERED: CODEINE 30MG/APAP 300MG TAB PO PRN ×2 (09:37→09:47)
[2021-06-30] MEDS ORDERED: D5 0.45 NS 1,000 ML IV SCH (10:00)
--- NOTE | 2021-06-30 12:55 | P.DS ---
Admission Date: 06/28/21 Discharge Date: 06/30/21 Discharge Condition: GOOD Reason for Admission: s/p right laparoscopic radical nephrectomy Procedures: right laparoscopic radical nephrectomy - Problems (1) Clear cell carcinoma of right kidney Onset Date: Unknown Current Visit: Yes Status: Acute (2) S/P laparoscopic surgery Onset Date: ~06/28/21 Current Visit: Yes Status: Acute (3) S/p nephrectomy Onset Date: ~06/28/21 Current Visit: Yes Status: Acute Brief History of Present Illness: 76yo woman with HTN and right central-lower pole enhancing renal mass, biopsy- proven ccRCCa. Hospital Course: She underwent uncomplicated right lap radical nephrectomy on 06/28/21. The night of POD#1, she passed flatus and was voiding by the morning of POD#2. She had minimal pain, and with no fever, stable renal function with Cr 1.3, tolerating diet and having flatus, she was in good condition for discharge to home. Vital Signs/Physical Exam: Temp Pulse Resp BP Pulse Ox 97.8 F 59 16 167/89 H 93 06/30/21 08:00 06/30/21 08:00 06/30/21 08:00 06/30/21 09:20 06/30/21 08:00 General: Alert, In no apparent distress, Oriented x3 HEENT: Atraumatic, Normocephalic, Mucous membr. moist/pink Respiratory: Normal air movement Cardiovascular: No edema Gastrointestinal: Soft and benign, Non-distended, No tenderness, No rebound, No guarding Musculoskeletal: No clubbing, No swelling, No tenderness Integumentary: No rashes, No breakdown, No cyanosis Neurological: Normal speech, Normal affect Laboratory Data at Discharge: WBC 11.70 K/uL (4.3-10.9) H D 06/30/21 05:36 Hgb 12.9 g/dL (12.0-15.0) 06/30/21 05:36 Hct 38.8 % (36.0-45.0) 06/30/21 05:36 Plt Count 203 K/uL (152-406) 06/30/21 05:36 PT 11.8 SECONDS (9.5-12.5) 06/23/21 09:28 INR 1.03 06/23/21 09:28 Sodium 134 mmol/L (136-145) L 06/30/21 05:36 Potassium 3.7 mmol/L (3.5-5.1) 06/30/21 05:36 BUN 19 mg/dL (7-18) H 06/30/21 05:36 Creatinine 1.32 mg/dL (0.55-1.3) H 06/30/21 05:36 Glucose 110 mg/dL (74-106) H 06/30/21 05:36 Home Medications: Amlodipine Besylate 10 mg PO DAILY 06/23/21 Aspirin [Aspirin EC 325 MG] 325 mg PO DAILY 06/23/21 Famotidine 40 mg PO DAILY 06/23/21 Famotidine [Pepcid*] 20 mg PO PRN PRN 06/23/21 Lisinopril [Zestril] 10 mg PO BID 06/23/21 Codeine/APAP [Tylenol #3*] 2 tab PO Q6H PRN #24 tab 06/30/21 New Medications: Codeine/APAP [Tylenol #3*] 2 tab PO Q6H PRN #24 tab PRN Reason: Pain Scale 8-10 (Severe) Physician Discharge Instructions: Please see your primary care physician within the next 1-2 weeks. We need him/her to assist in better control of your blood pressure. Given the potential impact of the Lisinopril on your kidney function, I would like for him/her to adjust your regimen relative to that. Contact my office to schedule follow up within the next 3-6 weeks. Notify me if you develop any fever (temp >100.4F), intractable nausea/vomiting, increasing pain uncontrolled by pain medications, breathing difficulties or shortness of breath, one-sided leg swelling, or other unusual signs or symptoms. You may shower 5 days after surgery, but you should sponge bathe until then. It is imperative for you to walk frequently - every 4 hours minimum during the day initially, then after 1 week, every 2 hours during the day. Avoid straining or heavy lifting - nothing heavier than 15-20lbs for the first 6 weeks from surgery. I recommend Miralax taken daily to keep your stools soft and keep you regular, but you may add to this Milk of Magnesia as needed for constipation. All the best! WBR Diet: AHA Activity: No strainin or heavy lifiting over 15 lbs. Followup: Jignesh Lipscomb [ACTIVE - CAN ADMIT] - Time spent managing pt's care (in minutes): 40
[2021-06-30 15:28] VITALS: BP 147/67; TEMP 98.9
[2021-06-30 17:14] VITALS: BMI 25.1
[2021-06-30] MEDS ORDERED: hydroCHLOROthiazide 12.5 MG CAP PO ONE (22:00)
== END 2021-06-30 15:10 | disposition home or self-care (01) | DRG 658 ==
LOC: OR 06:15 → 2ND 13:18
PROVIDERS: ADMIT Urology; ATTEND Urology
PROC: 0TT04ZZ Resection of Right Kidney, Percutaneous Endoscopic Approach (ICD-10-PCS; principal; 2021-06-28 07:30)
DX: C64.1 Malignant neoplasm of right kidney, except renal pelvis (principal); I10 Essential (primary) hypertension; K42.9 Umbilical hernia without obstruction or gangrene; Z20.822 Contact with and (suspected) exposure to COVID-19
CPT/HCPCS: 36415; 71046; 80048; 81003; 81015; 85025; 85610; 87086; 87088; 88307; 93005; J0690; J1100; J1170; J1644; J2250; J2405; J2704; J2710; J3010; J7040; J7120; J7799; U0003